=== PATIENT | female | born 1955 | race Caucasian/White ===

== ENCOUNTER → 2019-06-16 13:09 | Outpatient (CLI) | payer OTHER, SELFPAY ==
[2019-06-16 12:44] VITALS: BMI 25.1
--- NOTE | 2019-06-16 13:15 | CT_ITS ---
STUDY: LOW DOSE CT LUNG CANCER SCREENING REASON FOR EXAM: Female, 63 years old. The patient has a smoking history one and half pack per day for 42 years. RADIATION DOSAGE (If Supplied By Facility): CTDIvol = ( 2.01 ) mGy, DLP = ( 61.93 ) mGycm TECHNIQUE: No contrast was administered. Low dose technique was utilized (average mAS-38 and kVp 120). 1.25 mm axial source images with a slice interval of 1.25-mm were reconstructed in lung windows. 2.5 mm axial source images with a slice interval of 2.5-mm were reconstructed in lung windows. 5.0 mm axial source images with a slice interval of 5.0-mm were reconstructed in soft tissue windows. Nodule measured using lung windows on PACS and/or independent workstation with automated measurement of minimum and maximum diameter. Nodule measurement reported as average diameter rounded to the nearest whole number. Growth is defined as an increase ins size of greater than 1.5 mm. COMPARISON: None. NODULES: No nodular densities are seen. Emphysema: Mild degree of scarring at the lung bases. Aorta: Atherosclerotic plaque formation. Coronary arteries: Coronary artery calcification. Other chest and abdominal findings: Small hiatal hernia. CT/Low Dose CT Lung Screening IMPRESSION: Lung-RADS category 2 - Continue annual screening with LDCT in 12 months. IMPORTANT NOTES FOR USE: ACR Lung-RADS Version 1.0 Assessment Categories Release Date: October 27, 2013 Category: Coded 0-4 bases on nodule(s) with highest degree of suspicion. Negative screen is defined as categories 1 and 2; a positive screen is defined as categories 3 and 4. Category 3 and 4A nodules that are unchanged on interval CT should be coded as category 2, and individuals returned to screening in 12 months. Category 4X: Category 3 or 4 nodules with additional imaging findings that increase the suspicion of lung cancer, such as spiculation, GGN that doubles in size in 1 year, enlarged lymph notes, etc. Category Modifiers: S (significant finding unrelated to lung cancer) and C (prior history of treated lung cancer) may be added to the 0-4 Lung-RADS Electronically Signed: Jose Amador, at 14:00 EST , Service support ,
== END ==
PROVIDERS: Family Provider Physician Assistant; PCP Physician Assistant; Referring Provider Nurse Practitioner Family; Visit Provider Nurse Practitioner Family
DX: Z12.2 Encounter for screening for malignant neoplasm of respiratory organs (principal); F17.200 Nicotine dependence, unspecified, uncomplicated
CPT/HCPCS: G0297

== ENCOUNTER 2019-07-19 14:16 | Observation (INO) | payer OTHER, SELFPAY ==
[2019-06-16 12:44] VITALS: BMI 25.1
[2019-07-19 14:18] VITALS: BP 130/70; PULSE 58; RESP 16; TEMP 36.4; O2SAT 100; BMI 24.7
--- NOTE | 2019-07-19 14:30 | CT_ITS ---
STUDY: CT ABDOMEN AND PELVIS WITH CONTRAST REASON FOR EXAM: Female, 63 years old. RUQ pain today, nausea. Prior , appendectomy. RADIATION DOSAGE (If Supplied By Facility): CTDIvol = ( 16.01 ) mGy, DLP = ( 555.68 ) mGycm TECHNIQUE: Transaxial images were obtained from the dome of the diaphragm to the symphysis pubis without oral contrast. Oral and amp; IV Gastrografin and amp; 100mL Isovue-300 was administered. Sagittal and coronal images were reconstructed. Individualized dose optimization techniques were used for this CT. COMPARISON: None. FINDINGS: There are mild peripheral atelectatic changes of the right lower lobe. The visualized portions of the heart are within normal limits. There is intrahepatic periportal edema. There is well filled gallbladder. There appears to be diffuse gallbladder wall thickening. No calcified gallstones are seen. There is dilatation of the CBD measuring up to 13 mm. Normal spleen. Normal pancreas. Normal bilateral adrenal glands. There is a 7 mm probable cyst of the right kidney. There is a 4.1 cm left renal cyst. There is a small hiatal hernia. Normal small intestine. Normal colon. There is non-visualization of the appendix. There are calcified plaques of the abdominal aorta and common iliac arteries. Normal inferior vena cava. Normal retroperitoneum. Normal urinary bladder. There are bilateral fat-containing inguinal hernias. There are diffuse degenerative changes of the visualized lumbar spine. CT/Abdomen/Pelvis WITH Contrast IMPRESSION: 1. Intrahepatic periportal edema. 2. Appears to be diffuse gallbladder wall thickening. No calcified gallstones are seen. There is dilatation of the CBD measuring up to 13 mm. Right upper quadrant ultrasound may be helpful for further evaluation at this time. 3. 7 mm probable cyst of the right kidney. 4.1 cm left renal cyst. 4. Small hiatal hernia. 5. Bilateral fat-containing inguinal hernias. Electronically Signed: Raoul Merchant MD at 17:10 EST , Service support ,
--- NOTE | 2019-07-19 14:32 | ED.DCSUM_ITS ---
- ER Visit Summary Date of Service: 07/19/19 Chief Complaint: Abdominal pain History of Present Illness: The patient is a 63 F who presents with abdominal pain that began today approximately 2 hours prior to arrival. Patient states this feels similar to her prior bowel obstruction. Patient describes the pain is sharp. Patient states the pain is mainly localized to the right upper quadrant. Patient does admit to some radiation into her back. Patient states her pain is laying still. Patient states nothing makes her pain worse. Patient admits to nausea but denies any vomiting. Patient denies any diarrhea, melena, or hematochezia. Patient denies any dysuria or hematuria. Physical Examination: Vital signs are stable. Patient is afebrile. Patient is in no acute distress. Oral mucosa is pink and moist. Neck is supple. Trachea is midline. There is no JVD. Heart was regular rate and rhythm. Lungs are clear and equal bilaterally. Abdomen is soft. Bowel sounds are normal. There is some right upper quadrant and epigastric tenderness. There is no rebound or guarding noted. Cranial nerves II through XII are intact. There are no focal motor or sensory deficits noted. Test Results: CBC shows a leukocytosis of 16.4. Comprehensive metabolic profile showed a slightly elevated AST of 54 and a slightly elevated glucose of 156 but the remaining labs are within normal limits. Urinalysis does not show any evidence of urinary tract infection. CT scan of the abdomen and pelvis was obtained. There is evidence of cholecystitis. A ultrasound was recommended. This was performed. There is gallbladder wall thickening and ductal dilatation of the biliary duct. There is some pericholecystic fluid. This was interpreted by the radiologist. Emergency Department Course and Treatment: Patient was given IV fluids, Zofran, and morphine. Patient is feeling somewhat better on reevaluation. The case was discussed with Dr. Ward. He was in to evaluate the patient and will admit the patient to his service. Patient and family understood and were agreeable with the plan. All questions were answered. Disposition: Admit to hospital Impression: Acute cholecystitis This note was generated with SpareTimeation software. It may contain incorrect words, spelling, and punctuation that were not noted in review of the chart prior to signing ED Disposition - Plan for ED Patient: Disposition: Acute Care Hospital [facility] Diagnosis: Acute cholecystitis
[2019-07-19] MEDS: Ondansetron 4 MG/2 ML Vial IV (14:46)
[2019-07-19] MEDS: 0.9% Normal Saline 1,000 ML 1000 ML IV (14:46)
[2019-07-19] MEDS: Morphine 4 MG/ML Syringe IV (14:47)
[2019-07-19 15:06] LABS: Absolute Neutrophil Count 13.9 X10^3/uL (2.0-7.7); Basophil# 0.04 X10^3/uL; Basophil% 0.2 % (0-1); Eosinophil# 0.05 X10^3/uL; Eosinophils% 0.3 % (0-5); Hematocrit 40.3 % (37-47); Hemoglobin 13.2 g/dL (12.0-15.0); Lymphocyte % 9.1 % (19-41); Mean Corp Hgb Conc 32.8 g/dL (32-36); Mean Corpuscular Hgb 29.7 pg (27.0-32.0); Mean Corpuscular Volume 90.8 fL (81-99); Mean Platelet Vol. 9.4 fl (6.2-12.0); Monocyte# 0.86 X10^3/uL; Monocyte% 5.2 % (0-10); NRBC Flagged by Analyzer 0 % (0-5); Neutrophil # 13.87 X10^3/uL (2.7-7.7); Neutrophil % 84.5 % (47-70); Platelet Count 277 K/mm3 (150-450); RBC Distribution Width CV 13.2 % (11.6-14.6); RBC Distribution Width SD 44.5 fl (35.1-43.9); Red Blood Count 4.44 M/mm3 (4.2-5.4); White Blood Count 16.4 K/mm3 (4.4-11.0)
[2019-07-19 15:34] LABS: ALB/GLOB Ratio 1.2 RATIO (0.9-2.4); AST(SGOT) 54 U/L (15-37); Alanine Aminotransfer ALT/SGPT 46 U/L (13-56); Albumin, Serum 3.9 g/dL (3.2-5.0); Alkaline Phosphatase 110 U/L (45-117); Anion Gap 6 (5-15); BUN 14 mg/dL (7-18); BUN/Creat Ratio 14.1 RATIO (10-20); Chloride 108 mmol/L (98-107); Creatinine, Serum 0.99 mg/dL (0.55-1.02); EST Glomerular Filtration Rate 60 mL/min (>60); Est Glom Filt Rate - Afr Amer 73 mL/min (>60); Estimated Creatinine Clearance 48.11 ml/min; Globulin 3.3 g/dL (2.2-4.2); Glucose 156 mg/dL (74-106); Lipase 184 U/L (73-393); Potassium 3.7 mmol/L (3.5-5.1); Protein, Total 7.2 g/dL (6.4-8.2); Sodium Level 139 mmol/L (136-145)
[2019-07-19 15:45] LABS: Bacteria 0 SEEN /hpf (None Seen); Mucous, Urine 0 SEEN /hpf (<or=2+)
[2019-07-19 15:49] LABS: Color, Urine Yellow (Yellow); Glucose, Dipstick Normal (Normal); Ketone-Dipstick 5 mg/dl (Negative); Leukocyte Esterase-Dipstick Negative /ul (Negative); Nitrite-Dipstick Negative (Negative); Occult Blood-Urine 10 /ul (Negative); Protein-Dipstick Negative (Negative); Urine Bilirubin Dipstick Negative (Negative); Urine Clarity Sl. Cloudy (Clear); Urine Urobilinogen Normal (Normal)
[2019-07-19 15:56] LABS: Red Blood Cells-Urine 0-5 SEEN /hpf (0-5); Squamous Epithelial Cells - UA 0-5 SEEN /hpf (5-10); White Blood Cells 0 SEEN /hpf (0-5)
--- NOTE | 2019-07-19 17:26 | US_ITS ---
STUDY: ABDOMINAL ULTRASOUND - RIGHT UPPER QUADRANT REASON FOR VISIT: Female, 63 years old RUQ PAIN SINCE NOON TODAY NPP SINCE 930AM DRANK CONTRAST FOR CT TECHNIQUE: Ultrasound evaluation of the right upper quadrant was performed with real-time and static chow-scale imaging. TECHNICAL QUALITY: Limited. Examination limited by bowel gas. COMPARISON: None. FINDINGS: Liver: The liver measures 18.2 cm. There is normal echogenicity of the liver. The bile ducts are within normal limits. There is hepatic color flow. The direction of portal flow is hepatopetal. There is no demonstrated mass lesion. Gallbladder: Normal distended gallbladder. The gallbladder wall measures 5 mm. There is a negative sonographic Luna''s sign. There is a tiny amount of pericholecystic fluid. There are several small polyps versus nonshadowing gallstones in the 3 to 4 mm range. Common Bile Duct (C.B.D.): The common bile duct measures 9.8 mm. Pancreas: Normal size of the head, body and tail of the pancreas. There is normal echogenicity of the pancreas. There is no demonstrated pancreatic mass or cyst. Right Kidney: Normal size of the right kidney. The right kidney measures 10.5 x 6.0 x 3.8 cm. Normal renal cortex. The right cortex measures 1.1 cm. There is a 1.0 x 0.9 x 0.8 cm midpole cyst. There is no right hydronephrosis. US/Gallbladder IMPRESSION: Gallbladder wall thickening, measuring up to 5 mm. There is a tiny amount of pericholecystic fluid. Findings are compatible with cholecystitis. There are several small polyps versus nonshadowing gallstones in the 3 to 4 mm range. Dilated CBD measuring up to 9.8 mm. Small mid pole cyst of the right kidney. Electronically Signed: Raoul Merchant MD at 19:25 EST , Service support ,
--- NOTE | 2019-07-19 20:03 | HP.PCM_ITS ---
Problem List (1) Acute cholecystitis Status: Acute History of Present Illness Date of Admission: 07/19/19 The patient is a 63 year old F who reports she had upper right quadrant abdominal pain yesterday and then it went away and then came back again today. She has nausea but no vomiting. It radiates the back. No fevers or chills. She has never had this before. She does note that she has been having increased heartburn recently. Past Medical History Medical History: Medical History (Last Reviewed 06/16/19 @ 12:41 by Akanksha Lundberg) Apnea R06.81 Bowel obstruction K56.609 repair 2003 at [facility] Elevated fasting blood sugar R73.01 GERD (gastroesophageal reflux disease) K21.9 Heart palpitations R00.2 Hyperglycemia R73.9 Hyperlipidemia E78.5 Hypothyroidism E03.9 Intestinal adhesions K66.0 removal of adhesions 2003 at [facility] Memory difficulty R41.3 Osteopenia M85.80 Osteoporosis M81.0 Positive colorectal cancer screening using Cologuard test R19.5 Post-menopausal Z78.0 Tobacco use disorder F17.200 Vitamin D deficiency E55.9 HTN (hypertension) I10 Allergies simvastatin Allergy (Verified 06/16/19 12:43) Other blisters Home Medications: Ambulatory Orders Medication Instructions Recorded Alendronate Sodium [Fosamax] 70 mg PO Q7D@0700 06/16/19 Aspirin E.C. [Ecotrin] 81 mg PO DAILY@0800 06/16/19 Atorvastatin Calcium [Lipitor] 40 mg PO QHS 06/16/19 Levothyroxine [Synthroid] 75 mcg PO DAILY 06/16/19 Multivitamins,Therapeutic 1 tab PO DAILY 06/16/19 [Multivitamin] [place]-3 Fatty Acids/Fish Oil [Fish 1 ea PO TID 06/16/19 Oil 1,000 mg Capsule] Surgical History: Surgical History (Last Updated 06/16/19 @ 08:51 by Akanksha Lundberg) History of delivery Z98.891 History of tubal ligation Z98.51 Surgical History: - - C-sections, exploratory laparotomy for small bowel adhesions Smoking Status: Current every day smoker Review of Systems Constitutional: Denies: Anorexia, Fever HEENT: Denies: Difficulty Swallowing, Dysphasia Cardiovascular: Denies: Chest Pain Respiratory: Denies: Cough, Shortness of Breath Gastrointestinal: Reports: Abdominal Pain, Nausea. Denies: Constipation, Diarrhea, Vomiting Genitourinary: Denies: Dysuria Musculoskeletal: Denies: Arm Pain, Leg Pain Skin: Denies: Dryness, Jaundice Neurological: Denies: Balance problems Psychiatric: Denies: Anxiety Hematologic/ Lymphatic: Denies: Adenopathy VTE Information - Inpt Only VTE Present on Admission: No VTE Mechan Device Prophylaxis: SCD's Patient Problems: Active and Suspected Problems (Last Reviewed 06/16/19 @ 12:41 by Akanksha Lundberg) Acute cholecystitis (Acute) - Physical Exam Vitals/I&O's: Vital Signs Temp Pulse Resp BP Pulse Ox 97.5 F L 58 L 16 130/70 H 100 07/19/19 14:18 07/19/19 14:18 07/19/19 14:18 07/19/19 14:18 07/19/19 14:18 Oxygen Delivery Method Room Air Weight: 140 lb Body Mass Index (BMI) 24.7 Intake and Output for Last 24 Hours 07/17/19 07/18/19 07/19/19 23:59 23:59 23:59 Intake Total 1000 / 1000 Balance 1000 / 1000 General: Alert, Oriented x3 Neck: No JVD Lungs: Normal air movement Cardiovascular: Regular rate, Regular Rhythm Abdomen: Soft, Non-Distended, Tender - Tender to deep palpation in the right upper quadrant with no guarding or rebound Neurological: Cranial nerves II-XII grossly intact Psych/Mental Status: Normal Affect Laboratory Results 07/19/19 14:57: WBC 16.4 H, RBC 4.44, Hgb 13.2, Hct 40.3, MCV 90.8, MCH 29.7, MCHC 32.8, RDW Std Deviation 44.5 H, RDW Coeff of Oswald 13.2, Plt Count 277, MPV 9.4, Immature Gran % (Auto) 0.700, Neut % (Auto) 84.5 H, Lymph % (Auto) 9.1 L, [place] % (Auto) 5.2, Eos % (Auto) 0.3, Baso % (Auto) 0.2, Absolute Neuts (auto) 13.9 H, Absolute Lymphs (auto) 1.50, Nucleated RBC % 0 07/19/19 14:57: Sodium 139, Potassium 3.7, Chloride 108 H, Carbon Dioxide 25.0, Anion Gap 6, BUN 14, Creatinine 0.99, Estim Creat Clear Calc 48.11, Est GFR (MDRD) Af Amer 73, Est GFR (MDRD) Non-Af 60, BUN/Creatinine Ratio 14.1, Glucose 156 H, Calcium 9.0, Total Bilirubin 0.80, AST 54 H, ALT 46, Alkaline Phosphatase 110, Total Protein 7.2, Albumin 3.9, Globulin 3.3, Albumin/Globulin Ratio 1.2, Lipase 184 07/19/19 15:35: Urine Color Yellow, Urine Clarity Sl. Cloudy, Urine pH 7.0, Ur Specific [place] 1.010, Urine Protein Negative, Urine Glucose (UA) Normal, Urine Ketones 5 H, Urine Occult Blood 10 H, Urine Nitrite Negative, Urine Bilirubin Negative, Urine Urobilinogen Normal, Ur Leukocyte Esterase Negative, Urine RBC 0-5 SEEN, Urine WBC 0 SEEN, Ur Squamous Epith Cells 0-5 SEEN, Urine Bacteria 0 SEEN, Urine Mucus 0 SEEN Clinical Impression(s) from Imaging Studies Abdomen/Pelvis CT 07/19/19 14:30 IMPRESSION: 1. Intrahepatic periportal edema. 2. Appears to be diffuse gallbladder wall thickening. No calcified gallstones are seen. There is dilatation of the CBD measuring up to 13 mm. Right upper quadrant ultrasound may be helpful for further evaluation at this time. 3. 7 mm probable cyst of the right kidney. 4.1 cm left renal cyst. 4. Small hiatal hernia. 5. Bilateral fat-containing inguinal hernias. Electronically Signed: Raoul Merchant MD at 17:10 EST , Service support , Gallbladder Ultrasound 07/19/19 17:26 IMPRESSION: Gallbladder wall thickening, measuring up to 5 mm. There is a tiny amount of pericholecystic fluid. Findings are compatible with cholecystitis. There are several small polyps versus nonshadowing gallstones in the 3 to 4 mm range. Dilated CBD measuring up to 9.8 mm. Small mid pole cyst of the right kidney. Electronically Signed: Raoul Merchant MD at 19:25 EST , Service support , Assessment/Plan All Active Problems (Last Reviewed 06/16/19 @ 12:41 by Akanksha Lundberg) Acute cholecystitis (Acute) Tobacco use disorder, continuous (Acute) 63-year-old female with acute cholecystitis 1. The patient had right upper quadrant pain which is now improved. She does have an elevated white count with a left shift. She had a CT scan which showed thickening of the gallbladder wall with pericholecystic edema as well as dilation of her common bile duct. Her LFTs are currently normal. She does have thickening of her gallbladder wall on ultrasound as well. I discussed laparoscopic cholecystectomy with cholangiogram with her. I also discussed the possibility of needing an ERCP if there are any stones identified in the duct. The patient understands and is willing to proceed. 2. I discussed the procedure in detail with the patient. I discussed the risks, benefits, and alternatives of the procedure. I discussed the risks including but not limited to bleeding, infection, injury to surrounding organs such as the liver, bile duct, bowels. I did discuss the possibility of having to convert to an open procedure as well as the possibility that if any injuries occurred this may necessitate further surgery at a tertiary care center. 3. I will admit her to the floor and keep her on Zosyn and keep her n.p.o. after midnight and plan for OR in the morning. Jonathan Ward MD Pager: [facility] [address] [place] [address], [address] [place] [address] Office:
--- NOTE | 2019-07-19 20:07 | EKG12_ITS ---
Test Reason : AM Blood Pressure : / mmHG Vent. Rate : 058 BPM Atrial Rate : 058 BPM P-R Int : 160 ms QRS Dur : 070 ms QT Int : 438 ms P-R-T Axes : 043 016 057 degrees QTc Int : 429 ms Sinus bradycardia with sinus arrhythmia Low voltage QRS Borderline ECG Confirmed by SERGIO MCINTYRE, YARA ([id number]), manager editorial JOHN HECTOR ([id number]) on 07/23/2019 10:24:41 AM Referred By: Lissette Kelly Confirmed By:YARA HILL MD
[2019-07-19 20:17] VITALS: BP 133/74; PULSE 60; PULSE 63; RESP 14; O2SAT 95
[2019-07-19 21:09] VITALS: BMI 26.1
[2019-07-19 21:13] VITALS: BP 132/72; PULSE 61; RESP 16; TEMP 36.7; O2SAT 97
[2019-07-19 21:25] VITALS: BMI 26.1
[2019-07-19] MEDS: 0.9% Normal Saline 1,000 ML 100 ML IV (21:41)
[2019-07-19] MEDS: 0.9% Saline Lock 10 ML Syringe IV (21:41)
[2019-07-19] MEDS: Famotidine 20 MG Tablet PO (22:13)
[2019-07-19 22:55] VITALS: BMI 26.1
[2019-07-20] VITALS (14 sets, daily range): BP systolic 109–154; BP diastolic 59–86; PULSE 51–99; RESP 16–18; TEMP 36.3–36.8; O2SAT 92–98; BMI 26.1
--- NOTE | 2019-07-20 | GALL_PTH ---
PATIENT: AUDI SANTIZO LOC: MS3 U#:[id number] AGE/SX: 63/F ROOM: MS305 RE07/19/[address]: Dr. Jonathan Ward MD : [id number] BED: 1 DIS: 07/20/2019 SPEC #: [id number] RECD: 07/21/19 09:20 STATUS: NEREYDA REYinka #: [id number] MARISELA: 07/20/19 00:[address]: Jonathan Ward DEPT: SURGICAL PATHOLOGY RECD BY: Kobe Winslow ENTERED: 07/21/19 13:21 SP TYPE: JUNO RAZA DR: HECTOR Esquivel Tissues: Gallbladder, NOS Procedures: Surgery Specimen Level III HEADER OPERATION: Laparoscopic cholecystectomy with IOC PRE-OP DIAGNOSIS: Acute cholecystitis TISSUE SUBMITTED: Gallbladder MICROSCOPIC DIAGNOSIS Gallbladder, cholecystectomy: Chronic cholecystitis. Benign pericystic lymph node. AM:taylor 1/21/20 MICROSCOPIC DESCRIPTION Slides are reviewed. GROSS DESCRIPTION Received is one container labeled with the patient's name and designated gallbladder. The specimen consists of a gallbladder measuring 10 cm in length and 3.5 cm in diameter. The external surface is pink-neff, smooth and glistening for the most part. Focally it is granular, hemorrhagic and contains cautery artifact. The gallbladder contains green-yellow mucoid bile. No stones are identified in the container or in the gallbladder. The mucosa is bile-stained and without any mass lesions. The gallbladder wall measures 0.2 cm in thickness. Also present close to the cystic duct is a neff, ovoid nodule, a possible lymph node, measuring 0.5 cm in greatest dimension. Automobile Seat Cover Installer sections from the gallbladder and the cystic duct including entire possible lymph node are submitted in one cassette. / SJ:taylor 07/21/19 TC:3 CPT: 34105
[2019-07-20] MEDS: Levothyroxine 75 MCG Tablet PO (05:21)
[2019-07-20 07:01] LABS: Absolute Lymphocyte Count 1.85 X10^3/uL (0.83-4.51); Basophil# 0.05 X10^3/uL; Basophil% 0.7 % (0-1); Eosinophil# 0.11 X10^3/uL; Eosinophils% 1.5 % (0-5); Hematocrit 37.8 % (37-47); Lymphocyte # 1.85 X10^3/ul (4.0); Lymphocyte % 24.6 % (19-41); Mean Corp Hgb Conc 31.7 g/dL (32-36); Mean Corpuscular Hgb 29.1 pg (27.0-32.0); Mean Corpuscular Volume 91.7 fL (81-99); Mean Platelet Vol. 9.9 fl (6.2-12.0); Monocyte% 6.6 % (0-10); NRBC Flagged by Analyzer 0 % (0-5); Neutrophil % 66.3 % (47-70); Platelet Count 228 K/mm3 (150-450); RBC Distribution Width CV 13.4 % (11.6-14.6); RBC Distribution Width SD 45.4 fl (35.1-43.9); Red Blood Count 4.12 M/mm3 (4.2-5.4); White Blood Count 7.5 K/mm3 (4.4-11.0)
[2019-07-20 07:25] LABS: ALB/GLOB Ratio 1.1 RATIO (0.9-2.4); AST(SGOT) 34 U/L (15-37); Alanine Aminotransfer ALT/SGPT 56 U/L (13-56); Albumin, Serum 3.1 g/dL (3.2-5.0); Alkaline Phosphatase 97 U/L (45-117); Anion Gap 5 (5-15); BUN 8 mg/dL (7-18); BUN/Creat Ratio 9.9 RATIO (10-20); Chloride 113 mmol/L (98-107); Creatinine, Serum 0.81 mg/dL (0.55-1.02); EST Glomerular Filtration Rate 76 mL/min (>60); Est Glom Filt Rate - Afr Amer 92 mL/min (>60); Estimated Creatinine Clearance 56.23 ml/min; Globulin 2.8 g/dL (2.2-4.2); Glucose 83 mg/dL (74-106); Lipase 83 U/L (73-393); Potassium 3.9 mmol/L (3.5-5.1); Protein, Total 5.9 g/dL (6.4-8.2); Sodium Level 142 mmol/L (136-145); Thyroid Stim Hormone (TSH) 1.19 uIU/mL (0.358-3.74)
[2019-07-20] MEDS: 0.9% Normal Saline 1,000 ML 100 ML IV ×2 (07:30→10:35)
--- NOTE | 2019-07-20 07:53 | NURSING ---
pt transported to OR via bed at this time, IV Zosyn sent running on pump.
--- NOTE | 2019-07-20 08:10 | RAD_ITS ---
PROCEDURE: INTRAOPERATIVE CHOLANGIOGRAM DATE OF EXAMINATION: 07/20/2019 INDICATION: Female, 63 years old. Following a laparoscopic cholecystectomy an intraoperative cholangiogram was performed by the surgeon. FLUOROSCOPY TIME (if supplied): (0:32) minutes/seconds TECHNIQUE: Under fluoroscopic guidance an intraoperative cholangiogram was performed with serial digital images obtained. FINDINGS: There is normal opacification of the common bile duct, hepatic duct, right and left hepatic ducts. The ducts are normal in size. There is no mucosal irregularity or intraluminal filling defects. The contrast flows into the second portion of the duodenum on later images. RAD/Cholangiogram/ O R,Initial IMPRESSION: Normal intraoperative cholangiogram. Electronically Signed: Omkar Martinez MD (Bro[place]) at 12:15 EST , Service support ,
[2019-07-20] MEDS: Bupivacaine Mpf 0.5% 30 ML VIAL (08:40)
--- NOTE | 2019-07-20 09:07 | PCM.OPRPT ---
Problem List (1) Acute cholecystitis Status: Acute Report of Operation Date of Procedure: 07/20/19 Pre-Operative Diagnosis: Acute cholecystitis Post-Operative Diagnosis: Acute cholecystitis with dilated common bile duct Surgery/Procedure Performed:: Laparoscopic cholecystectomy with cholangiogram Specimen's removed: Gallbladder and contents Description of Procedure: After obtaining informed consent patient was brought back to the operating room. General anesthesia was induced. The abdomen was prepped and draped in usual sterile fashion. A small midline incision was made superior to the umbilicus and deepened to the level of fascia. The fascia was elevated and incised. Next the peritoneum was elevated and incised in the same fashion. Finger sweep was performed and the Joseph trocar was placed into the abdomen. The balloon was inflated. The abdomen was inflated to 15 mmHg. Next a camera was introduced into the abdomen and the abdomen was inspected. Next under direct visualization three 5-mm ports were placed one subxiphoid and 2 subcostal. Next the gallbladder was elevated and retracted toward the right shoulder. The peritoneum was stripped from the gallbladder. The infundibulum was located and retracted laterally. Next the triangle of Calot was dissected and the cystic duct and cystic artery were identified. Cholangiograms were performed. The Mckeon clamp was used to clamp across the infundibulum and the catheter needle was inserted into the gallbladder. Under fluoroscopy contrast was instilled into the gallbladder and the common duct, cystic duct as well as proximal hepatic ducts were identified. There was filling of the duodenum. The common bile duct appeared dilated. There were no filling defects noted in the common bile duct. Glucagon was given and 3 minutes later a repeat cholangiogram was performed and there was flow into the duodenum. The clamp was removed as well as the needle and the infundibulum was grasped once more. Three hemolock clips were placed across the cystic duct. The cystic duct was then divided leaving 2 clips on the stump. The cystic artery was clipped and divided in the same fashion. The hook cautery was then used to take the gallbladder off of the gallbladder bed. Hemostasis was obtained. Gallbladder fossa was irrigated and no active bleeding or bile leakage was noted. Next the camera switched to a 5 mm camera and introduced in the subxiphoid port. An Endopouch bag was placed through the umbilical port and the gallbladder was placed into it. The gallbladder was then removed through the umbilical incision. The camera was then reinserted through the umbilical port. The gallbladder fossa was inspected once more and noted to be hemostatic with no leaking bile. The abdomen was suctioned dry. The 5 mm ports were removed under direct visualization. The umbilical port was then removed and the air was removed from the abdomen. Next using an 0 Vicryl suture the umbilical fascia was closed in a asvyvw-[id number] fashion. The umbilical port site was irrigated local anesthetic was administered to all the incisions. All the incisions were closed with interrupted subcuticular 4-0 Monocryl sutures followed by Steri-Strips and dressings. The patient was awoken and taken to PACU in stable condition. - Admit VTE Documentation VTE Mechan Device Prophylaxis: SCD's
--- NOTE | 2019-07-20 09:30 | DCINST_ITS ---
Discharge Diet: Light diet - advance as tolerated Discharge Activity: Return to Normal Activity, May Not Drive - for 2-3 days or while taking narcotic pain medicataions., May Shower - tomorrow with bandages in place, - - Do not drive, work heavy equipment or sign legal documents for 24 hours. May shower in (days): 1 - with the bandage in place. Lifting Restrictions: 20 lbs for 2 weeks Additional Activity Instructions:: Pain medication may cause nausea. You should typically eat light foods as you take your pain medications. Pain medication may also cause constipation. If this is a problem for you, please discuss with your doctor. Call your doctor if your incision/area has: Continuous Slow Oozing, Sudden Increased Bleeding, Increased Pain/ Swelling, Increased Redness, Foul Smelling Discharge, Fever of 101 or Higher Call your doctor if you observe: Fever of 101 or Higher Suture Line Care: Avoid Pulling/Pushing, Avoid Pinching/Bending Additional Dressing/Incision Instructions:: Leave operative bandaids on for 2 days. When you remove dressing, leave Steri-Strips on until your follow-up appointment, or until the Steri-Strips fall off on their own. Allergies/Adverse Reactions: Allergies simvastatin Allergy (Verified 06/16/19 12:43) Other blisters Medications to take at Discharge Alendronate Sodium [Fosamax] 70 mg PO MO 06/16/19 Aspirin E.C. [Ecotrin] 81 mg PO DAILY@0800 06/16/19 Atorvastatin Calcium [Lipitor] 40 mg PO QHS 06/16/19 Levothyroxine [Synthroid] 75 mcg PO DAILY 06/16/19 Multivitamins,Therapeutic [Multivitamin] 1 tab PO DAILY 06/16/19 [place]-3 Fatty Acids/Fish Oil [Fish Oil 1,000 mg Capsule] 1 ea PO DAILY 06/16/19 Famotidine [Pepcid] 20 mg PO DAILY PRN 07/19/19 Oxycodone [Oxyir] 5 mg PO Q4H PRN PRN 7 Days #30 tablet 07/20/19 The following prescriptions were given: Oxycodone [Oxyir] 5 mg PO Q4H PRN PRN 7 Days #30 tablet PRN Reason: Pain Score 6-10/10 Transmission Status: Sent to [id number] Primary Care Physician: Lissette Kelly PA [Primary Care Provider] - Test Results: Test results from this visit will be discussed in further detail at your follow- up appointment, if applicable. Please Follow Up With: Jonathan Ward MD When: Please call to schedule 2 week follow up appointment. [phone]
[2019-07-20] MEDS: Morphine 2 MG/ML Syringe IV (10:34)
[2019-07-20] MEDS: oxyCODONE 5 MG Tablet PO ×2 (13:12→18:16)
[2019-07-20] MEDS: Acetaminophen 325 MG Tablet 650 MG PO (14:50)
== END 2019-07-20 18:54 | disposition home or self-care (01) ==
LOC: ED 14:44 → MS3 20:11
PROVIDERS: Admitting Provider Surgery; Emergency Provider Emergency Medicine; PCP Physician Assistant; Visit Provider Surgery
PROC: (CPT 47610; principal; 2019-07-20 08:00)
DX: K81.2 Acute cholecystitis with chronic cholecystitis (principal); K83.8 Other specified diseases of biliary tract; E03.9 Hypothyroidism, unspecified; K21.9 Gastro-esophageal reflux disease without esophagitis; R73.9 Hyperglycemia, unspecified; E78.5 Hyperlipidemia, unspecified; I10 Essential (primary) hypertension; E55.9 Vitamin D deficiency, unspecified; Z79.899 Other long term (current) drug therapy; Z79.82 Long term (current) use of aspirin; M81.0 Age-related osteoporosis without current pathological fracture; F17.200 Nicotine dependence, unspecified, uncomplicated
CPT/HCPCS: 00790; 47563; 36415; 74177; 74300; 76000; 76705; 80053; 81001; 83690; 84443; 85025; 88304; 93005; 96361; 96365; 96366; 96375; 96376; 99218; 99251; 99284; 99406; J7030; J7050; Q9967; A4216; G0378; G0463; J1610; J2405

== ENCOUNTER 2019-08-22 06:54 | Day surgery (SDC) | payer OTHER, SELFPAY ==
[2019-07-20 06:52] VITALS: BMI 26.1
[2019-08-22 07:22] VITALS: BP 123/73; PULSE 72; RESP 15; TEMP 36.8; O2SAT 99; BMI 25.1
[2019-08-22] MEDS: Lactated Ringers 1,000 ML 100 ML IV (07:32)
--- NOTE | 2019-08-22 07:32 | HP.PCM_ITS ---
History of Present Illness Date of Admission: 08/22/19 The patient is a 63 year old F who presents for EGD today. The patient had acute cholecystitis and the etiology was unknown. There were very small stones in her gallbladder and there was also ductal dilation. Past Medical/Surgical History - Planned Operation Planned Operative Procedure/s: EGD Date of Operative Procedure: 08/22/19 Permit Signed: No S.O.S: No Is This Patient Having a Total Joint: No - Previous Hospitalizations/Surgeries HX Hospitalizations: Yes - 07/2019 HX of Surgeries: 1986. Adhesion removal 2003. Tubal 1988. lap darshan 07/2019 Any Problems With Anesthesia: Yes - nausea with gallbladder You/Your Family Experience Fever (Hyperthermia) With Anes: No Cholinesterase deficiency: No - Cardiovascular Hx Chest Pain within Last 2 months: No Hx of Irregular Heartbeat and/or Afib: No Hx Heart Attack: No Hx Congestive Heart Failure: No Hx Rheumatic Fever: No - scarlet fever at age 5 Hx Hypertension: Yes - not on meds Hx Internal Defibrillator: No Hx Pacemaker: No Hx Cardiac Catheterization: No Hx Cardiac Surgery/Stents/Etc.: No Hx Stress Test: Yes - About 10 years ago HX Edema: No Hx Pain in Legs when Walking/Leg Cramps: No - Respiratory Chronic Cough: No HX of Shortness of Breath: Yes - states slightly sob with 2 flights stairs Hoarseness: No Hx Chronic Obstructive Pulmonary Disease (COPD): No Hx Asthma: No Hx Emphysema: No - denies Hx Sleep Apnea: No CPAP: No BIPAP: No Hx Oxygen Use at Home: No Hx Respiratory Tract Infection/Cold (presently): No Do You Snore Loudly (louder than talking or can be heard): Yes Do You Often Feel Tired/ Fatigued/ Sleepy Dring Daytime?: No Has Anyone Observed You Stop Breathing During Sleep?: No Result (for STOP score): Positive Hx Smoking: Yes - !ppd X 40 yrs Smoking Status: Current every day smoker - Gastrointestinal Hx Gastroesophageal Reflux: Yes Controlled With Meds: Yes - pepcid Hx Gastrointestinal Disorders: Yes - Diverticulitis Hx Gastrointestinal Bleed: No Hx Ulcer: Yes - 30 years ago Hx Hiatal Hernia: Yes Difficulty Chewing/Swallowing: No Recent Onset of Swallowing Problems: No Special diet followed at home: No Hx Unplanned Weight Loss of 20#: No HX Unplanned Weight Gain of 20#: No - Neurological Hx Seizures: No HX Syncope/Blackout Spells/Unconsciousness: No Hx CVA/Stroke: No Hx Transient Ischemic Attacks (TIA): No Hx Multiple Sclerosis: No Hx Parkinson's Disease: No Hx Head/Neck Injury: No Hx Headaches: No Hx Back Injury/Pain: No Recent Onset of Speech Difficulty: No Restless Legs: No Does patient have nerve stimulator: No Patient instructed to have device shut off: No Rep notified?: No - Blood Disorder Hx Leukemia: No Bleeding Tendencies: No Hx Deep Vein Thrombosis: No Hx High Cholesterol: Yes - on med Blood Transmitted Disease: No Hx Hepatitis: No Hx Cirrhosis: No Hx Anemia: No Hx Blood Disorders: No - Reproduction : No Is Patient Lactating: No Hx Hysterectomy: No Hx Tubal Ligation: Yes Are You Post Menopause: Yes - Genitourinary Hx Renal Disease: No Hx Dialysis: No - Musculoskeletal Hx Arthritis: No Hx Rheumatoid Arthritis: No Hx Gout: No Recent Onset of an Orthopedic Problem: No - Endocrine Hx Diabetes: No Insulin: No Thyroid Disease: Yes - hypothyroid, on med Hx Steroid Therapy: No - Psycho/Social Hx Substance Use: No Hx Alcohol Use: No Hx Anxiety: No Hx Depression: No Mental Illness: No Hx Dementia: No - Miscellaneous Hx Cancer: No Recent Exposure to Contagious Disease: No Active MRSA: No Hx of C-Diff: No Any Loose Teeth: No - dentures Allergies chlorhexidine Allergy (Mild, Verified 08/22/19 07:21) rash simvastatin Allergy (Verified 08/22/19 07:21) Other blisters - Discharge Is Pt Admitted From a Longterm, or a [facility]: No Who Could Help: After D/C, Where Do you Plan to Go: Return Home - From the PAT History Number of Risk Factors: 2 - Physical Exam Vitals/I&O's: Vital Signs Temp Pulse Resp BP Pulse Ox 98.3 F 72 15 123/73 H 99 08/22/19 07:22 08/22/19 07:22 08/22/19 07:22 08/22/19 07:22 08/22/19 07:22 Oxygen Delivery Method Room Air Weight: 141 lb 12.116 oz Body Mass Index (BMI) 25.1 General: Alert, Oriented x3 Neck: No JVD Lungs: Normal air movement Cardiovascular: Regular rate, Regular Rhythm Abdomen: Soft, Non Tender, Non-Distended Current Medications Lactated Ringer's () 1,000 mls @ 100 mls/hr IV .Q10H [facility] Assessment/Plan All Active Problems (Last Reviewed 06/16/19 @ 12:41 by Akanksha Lundberg) Acute cholecystitis (Acute) Tobacco use disorder, continuous (Acute) 63-year-old female with ductal dilation 1. The patient had biliary dilation. CT scan was normal revealing no pancreatic mass. She also had acute cholecystitis. I would like to perform an EGD to ensure that there is no ampullary mass. 2. I explained endoscopy in detail to the patient. I explained the risks including but not limited to stroke or heart attack with anesthesia, perforation of the GI tract, bleeding, infection. I explained that any of these could necessitate further emergency surgery. The patient understands and all q uestions were answered sufficiently. The patient wishes to proceed with procedure. Jonathan Ward MD Pager: [facility] [address] [place] [address] [address] [place] [address] Office: Surgery Risks - Colonoscopy Risks Include but are not Limited To: Risks include but are not limited to: Bleeding, perforation requiring further surgery, inability to complete colonoscopy requiring barium enema.
--- NOTE | 2019-08-22 07:53 | OP.CCLET_ITS ---
08/22/2019 Lissette Kelly Re : Upper GI endoscopy procedure for Ivett Kelly This procedure was performed on Thursday, August 22, 2019. My impressions and recommendations are as follows: Impressions : - Medium-sized hiatal hernia. - Normal stomach. - Normal examined duodenum. - No specimens collected. Recommendations : - Discharge patient to home. - Resume previous diet. - Continue present medications. My findings are described in the full procedure note, which is enclosed. If I can be of further assistance, please feel free to contact me at Doctor phone number(s): , Work: . Sincerely, Jonathan Ward MD 08/22/2019 7:53:03 AM This report has been signed electronically.
--- NOTE | 2019-08-22 07:53 | OP.EGD_ITS ---
Patient Name: Ivett Ortega Procedure Date: 08/22/2019 7:37 AM Date of : 1955 Age: 63 Procedure: Upper GI endoscopy Indications: Abnormal CT of the GI tract Providers: Jonathan Ward MD Referring MD: Lissette Kelly Medicines: Monitored Anesthesia Care Patient Profile: This is a 63 year old female. Refer to note in patient chart for documentation of history and physical. Complications: No immediate complications. Estimated blood loss: Minimal. Procedure: Pre-Anesthesia Assessment: - Prior to the procedure, a History and Physical was performed, and patient medications and allergies were reviewed. The patient's tolerance of previous anesthesia was also reviewed. The risks and benefits of the procedure and the sedation options and risks were discussed with the patient. All questions were answered, and informed consent was obtained. Prior Anticoagulants: The patient has taken no previous anticoagulant or antiplatelet agents. After reviewing the risks and benefits, the patient was deemed in satisfactory condition to undergo the procedure. After obtaining informed consent, the endoscope was passed under direct vision. Throughout the procedure, the patient's blood pressure, pulse, and oxygen saturations were monitored continuously. The gastroscope was introduced through the mouth, and advanced to the fourth part of duodenum. The upper GI endoscopy was accomplished without difficulty. The patient tolerated the procedure well. Scope In: 7:46:58 AM Scope Out: 7:50:15 AM Total Procedure Duration Time 0 hours 3 minutes 17 seconds Findings: A medium-sized hiatal hernia was present. The stomach was normal. The examined duodenum was normal. Impression: - Medium-sized hiatal hernia. - Normal stomach. - Normal examined duodenum. - No specimens collected. Recommendation: - Discharge patient to home. - Resume previous diet. - Continue present medications. Procedure Code(s): --- Professional --- 95478, Esophagogastroduodenoscopy, flexible, transoral; diagnostic, including collection of specimen(s) by brushing or washing, when performed (separate procedure) Diagnosis Code(s): --- Professional --- K44.9, Diaphragmatic hernia without obstruction or gangrene R93.3, Abnormal findings on diagnostic imaging of other parts of digestive tract CPT copyright 2017 [employer]. All rights reserved. The codes documented in this report are preliminary and upon inpatient coder review may be revised to meet current compliance requirements. Jonathan Ward MD 08/22/2019 7:53:03 AM This report has been signed electronically. Number of Addenda: 0 Note Initiated On: 08/22/2019 7:37 AM
[2019-08-22 07:55] VITALS: BP 123/73; BP 95/53; PULSE 82; RESP 16; TEMP 36.6; O2SAT 96
[2019-08-22 08:00] VITALS: BP 104/65; BP 123/73; PULSE 84; RESP 16; O2SAT 96
[2019-08-22 08:05] VITALS: BP 100/62; BP 123/73; PULSE 82; RESP 16; O2SAT 96
[2019-08-22 08:10] VITALS: BP 114/67; BP 123/73; PULSE 78; RESP 16; TEMP 37.1; O2SAT 98
[2019-08-22 08:31] VITALS: BP 123/73
== END 2019-08-22 08:50 | disposition home or self-care (01) ==
LOC: EN 07:00 → AC 07:01
PROVIDERS: PCP Physician Assistant; Referring Provider Physician Assistant; Visit Provider Surgery
PROC: 0DJ08ZZ Inspection of Upper Intestinal Tract, Via Natural or Artificial Opening Endoscopic (ICD-10-PCS; CPT 43235; principal; 2019-08-22 07:55)
DX: K44.9 Diaphragmatic hernia without obstruction or gangrene (principal); K21.9 Gastro-esophageal reflux disease without esophagitis; R93.3 Abnormal findings on diagnostic imaging of other parts of digestive tract; I10 Essential (primary) hypertension; E78.00 Pure hypercholesterolemia, unspecified; E03.9 Hypothyroidism, unspecified; F17.200 Nicotine dependence, unspecified, uncomplicated; Z79.899 Other long term (current) drug therapy
CPT/HCPCS: 43235; J7120; J2405

== ENCOUNTER → 2021-06-09 15:26 | Outpatient (CLI) | payer OTHER, SELFPAY ==
--- NOTE | 2021-06-09 15:30 | BD_ITS ---
STUDY: DUAL ENERGY X-RAY ABSORPTIOMETRY / DXA REASON FOR EXAM: Female, 65 years old. M810 TECHNIQUE: Bone Mineral Density (BMD) measurements of lumbar spine and bilateral hips were obtained. COMPARISON: None. FINDINGS: Lumbar Spine (L1-L4): g/cm2 (0.786) / T-score (-2.4) / Z-score (-0.6) Findings are suggestive of osteopenia with a high fracture risk. Left Femur Total: g/cm2 (0.886) / T-score (-0.5) / Z-score (0.8) Left Femoral Neck: g/cm2 (0.612) / T-score (-2.1) / Z-score (-0.6) Right Femur Total: g/cm2 (0.756) / T-score (-1.5) / Z-score (-0.3) Right Femoral Neck: g/cm2 (0.596) / T-score (-2.3) / Z-score (-0.7) BD/Dexa Bone Density Study IMPRESSION: The patient is considered osteopenic as outlined below according to World Juan Organization (WHO) criteria with a high fracture risk. Reference Information: The T-score is the number of standard deviations above or below the standard which is normal for young adults at their peak bone mineral density. The World Health Organization (WHO) interprets the T-scores as follows: Above -1 Normal bone density Between -1 and -2.5 Osteopenia Equal to / or below -2.5 Osteoporosis As a practical clinical guideline, osteopenia may be graded as follows: Mild -1 through -1.5 Moderate -1.6 through -2.0 Severe -2.1 through -2.4 The Z-score is the number of standard deviations above or below age-matched controls. A Z-score of less than -1.5 would be considered abnormal. References: 1. NIH Osteoporosis and Related Bone Diseases www osteo.org 2. International Society for Clinical Densitometry www iscd.org 3. National Osteoporosis Foundation www nof.org Electronically Signed: Jose Amador MD at 14:11 EST , Service support ,
--- NOTE | 2021-06-09 15:31 | BI_ITS ---
MAMMOGRAPHY - BILATERAL SCREENING REASON FOR EXAM: Female, 65 years old. Routine annual screening examination. PERTINENT HISTORY: Non-contributory. TECHNIQUE: Digital bilateral breast loni (3D mammographic acquisition) in the CC and MLO projections. 2-D mediolateral oblique (MLO) and craniocaudad (CC) views of both breasts were obtained. CAD: Full Field Digital Mammography with Computer Added Detection was performed. COMPARISON: Comparison is made with prior outside examination dated 07/31/2017. FINDINGS: Breast Composition: There are scattered areas of fibroglandular density. There are no dominant masses or suspicious calcifications. Stable small benign-appearing bilateral axillary lymph. No other significant abnormalities are identified. There has been no significant change since the prior study. BI/SCRN MAMM (CAD)W/LONI BILAT IMPRESSION: Stable bilateral screening mammogram. Yearly follow-up mammogram recommended. (A) ASSESSMENT CATEGORY: BIRADS Category 2: Benign. A letter regarding these results will be sent to the patient by the facility within 30 days. Approximately 10% of breast cancers are not detected by mammography. A normal mammogram should not delay biopsy of a clinically suspicious abnormality. [id number] Electronically Signed: Jose Amador MD at 8:00 EST , Service support ,
--- NOTE | 2021-06-09 16:08 | RAD_ITS ---
STUDY: XR Shoulder Min 2 Views REASON FOR EXAM: Female, 65 years old. PAIN TECHNIQUE: XR Shoulder Min 2 Views COMPARISON: None. FINDINGS: Normal glenohumeral articulation. Normal acromioclavicular joint. Normal acromion. Normal humeral head and visualized proximal humerus. The soft tissue structures are unremarkable. Normal visualized pulmonary apex. RAD/Shoulder min 2 Views IMPRESSION: There are no acute findings of the shoulder. Electronically Signed: Rupesh Gonzalez MD at 20:57 EST , Service support ,
== END ==
PROVIDERS: PCP Physician Assistant; Referring Provider Physician Assistant; Visit Provider Physician Assistant
DX: M25.511 Pain in right shoulder (principal); M81.0 Age-related osteoporosis without current pathological fracture; Z12.31 Encounter for screening mammogram for malignant neoplasm of breast
CPT/HCPCS: 73030; 77063; 77067; 77080

== ENCOUNTER → 2022-06-08 | Outpatient (CLI) | payer OTHER, SELFPAY ==
--- NOTE | 2022-06-08 14:01 | CT_ITS ---
STUDY: LOW DOSE CT LUNG CANCER SCREENING REASON FOR EXAM: Female, 66 years old. Lung cancer screening -- 69 pk yr hx;current smoker; asymptomatic RADIATION DOSAGE (If Supplied By Facility): CTDIvol = ( 2.01 ) mGy, DLP = ( 59.67 ) mGycm TECHNIQUE: No contrast was administered. Low dose technique was utilized (average mAS-38 and kVp 120). 1.25 mm axial source images with a slice interval of 1.25-mm were reconstructed in lung windows. 2.5 mm axial source images with a slice interval of 2.5-mm were reconstructed in lung windows. 5.0 mm axial source images with a slice interval of 5.0-mm were reconstructed in soft tissue windows. COMPARISON: Comparison is made with prior examination dated 06/16/2019. NODULES: No suspicious nodules are seen. Emphysema: Hyperinflation. Mild degree of the scarring in the lung apices. Stable linear scarring in the lingular segment of the left upper lobe. Endobronchial lesion: None Aorta: Atherosclerotic plaque formation. CORONARY ARTERIES: Coronary artery calcification is seen. Heart: Unremarkable Pulmonary artery: Unremarkable Mediastinal nodes: Unremarkable Other chest and abdominal findings: CT/Low Dose CT Lung Screening IMPRESSION: Lung-RADS category 2 - Continue annual screening with LDCT in 12 months. IMPORTANT NOTES FOR USE: ACR Lung-RADS Version 1.1 Assessment Categories Release Date: 2018 Category: Coded 0-4 bases on nodule(s) with highest degree of suspicion. Negative screen is defined as categories 1 and 2; a positive screen is defined as categories 3 and 4. Category 3 and 4A nodules that are unchanged on interval CT should be coded as category 2, and individuals returned to screening in 12 months. Category 4X: Category 3 or 4 nodules with additional imaging findings that increase the suspicion of lung cancer, such as spiculation, GGN that doubles in size in 1 year, enlarged lymph notes, etc. Category Modifiers: S (significant finding unrelated to lung cancer) Electronically Signed: Jose Amador MD at 14:35 EST ,
== END | disposition home or self-care (01) ==
LOC: CT 13:59
PROVIDERS: PCP Physician Assistant; Referring Provider Nurse Practitioner Family; Visit Provider Nurse Practitioner Family
DX: Z87.891 Personal history of nicotine dependence (principal)
CPT/HCPCS: 71271

== ENCOUNTER → 2023-07-12 | Outpatient (CLI) | payer MEDICARE, SELFPAY ==
--- NOTE | 2023-07-12 15:56 | BI_ITS ---
MAMMOGRAPHY - BILATERAL SCREENING REASON FOR EXAM: Female, 67 years old. Routine annual screening examination. PERTINENT HISTORY: Non-contributory. TECHNIQUE: Digital bilateral breast loni (3D mammographic acquisition) in the CC and MLO projections. 2-D mediolateral oblique (MLO) and craniocaudad (CC) views of both breasts were obtained. CAD: Full Field Digital Mammography with Computer Added Detection was performed. COMPARISON: Comparison is made with prior study dated March 10, 2021. FINDINGS: Breast Composition: There are scattered areas of fibroglandular density. There are no dominant masses or suspicious calcifications. Stable small benign-appearing bilateral axillary lymph nodes. No other significant abnormalities are identified. There has been no significant change since the prior study. BI/SCRN MAMM (CAD)W/LONI BILAT IMPRESSION: Stable bilateral screening mammogram. Yearly follow-up mammogram recommended. (A) ASSESSMENT CATEGORY: BIRADS Category 2: Benign. A letter regarding these results will be sent to the patient by the facility within 30 days. Approximately 10% of breast cancers are not detected by mammography. A normal mammogram should not delay biopsy of a clinically suspicious abnormality. [id number] Electronically Signed: Jose Amador MD at 9:45 EST ,
--- NOTE | 2023-07-12 15:58 | BD_ITS ---
STUDY: DUAL ENERGY X-RAY ABSORPTIOMETRY / DXA REASON FOR EXAM: Female, 67 years old. M85.89 TECHNIQUE: Bone Mineral Density (BMD) measurements of lumbar spine and bilateral hips were obtained. COMPARISON: Comparison is made with prior study dated June 09, 2021. FINDINGS: Lumbar Spine (L1-L4): g/cm2 (0.786) / T-score (-2.4) / Z-score (-0.4) Findings are suggestive of osteopenia with a high fracture risk. Left Femur Total: g/cm2 (0.776) / T-score (-1.4) / Z-score (0.0) Left Femoral Neck: g/cm2 (0.626) / T-score (-2.0) / Z-score (-0.4) Right Femur Total: g/cm2 (0.736) / T-score (-1.7) / Z-score (-0.3) Right Femoral Neck: g/cm2 (0.585) / T-score (-2.4) / Z-score (-0.7) The T-Scores on the most recent prior examination were: Lumbar Spine (L1-L4): There has been improvement of bone density since the previous examination. Left Femur Total: which represents a worsening of 12.3%. Right Femur Total: which represents a worsening of 2.7%. BD/Dexa Bone Density Study IMPRESSION: The patient is considered osteopenic as outlined below according to World [place] Organization (WHO) criteria with a moderate fracture risk. There has been worsening of bone density since the previous examination. Reference Information: The T-score is the number of standard deviations above or below the standard which is normal for young adults at their peak bone mineral density. The World Health Organization (WHO) interprets the T-scores as follows: Above -1 Normal bone density Between -1 and -2.5 Osteopenia Equal to / or below -2.5 Osteoporosis As a practical clinical guideline, osteopenia may be graded as follows: Mild -1 through -1.5 Moderate -1.6 through -2.0 Severe -2.1 through -2.4 The Z-score is the number of standard deviations above or below age-matched controls. A Z-score of less than -1.5 would be considered abnormal. References: 1. NIH Osteoporosis and Related Bone Diseases www osteo.org 2. International Society for Clinical Densitometry www iscd.org 3. National Osteoporosis Foundation www nof.org Electronically Signed: Jose Amador MD at 8:31 EST ,
--- OUTSIDE RECORDS SUMMARY | 2023-07-12 16:13 | XMS RPT_ITS | CCD ---
Author Name Unknown Address [address] [facility] [address] [place] [address] Organization [facility] Care Team Providers Care Computer Systems Technology Instructor Name Role Phone TYLOR ERNANDEZ Admitting Unavailable TYLOR ERNANDEZ Attending Unavailable TYLOR ERNANDEZ Primary Care Unavailable CRYSTAL GARCÍA Consulting Unavailable PROVIDER, UNKNOWN Consulting Unavailable PROVIDER, UNKNOWN Consulting Unavailable PROVIDER, UNKNOWN Consulting Unavailable TYLOR ERNANDEZ Admitting Unavailable TYLOR ERNANDEZ Attending Unavailable TYLOR ERNANDEZ Primary Care Unavailable CRYSTAL GARCÍA Consulting Unavailable PROVIDER, UNKNOWN Consulting Unavailable PROVIDER, UNKNOWN Consulting Unavailable PROVIDER, UNKNOWN Consulting Unavailable RADHA KELLY Admitting Unavailable RADHA KELLY Attending Unavailable RADHA KELLY Primary Care Unavailable CRYSTAL GARCÍA Consulting Unavailable PROVIDER, UNKNOWN Consulting Unavailable PROVIDER, UNKNOWN Consulting Unavailable PROVIDER, UNKNOWN Consulting Unavailable Radha Kelly PA-C Unavailable Radha Kelly PA-C Unavailable Dr. Lashae Redmond MD ([place]) Unavailable Dr. Karel Valentine MD Unavailable Dr. Tylor Ernandez MD Unavailable General Surgery Provider Unavailable Unavail able [facility] Unavailable Pulmonary Provider Unavailable Unavailable Junoir Young MD Unavailable Arlene Arnold LPN Unavailable Unavailable Annika Aragon LPN Unavailable Unavailable Marcia Ragland LPN Unavailable Unavailable Crystal García MD Unavailable Falguni Cordero PA-C Unavailable Carmen Morales Unavailable Unavailable Andrew IBARRA, Lauren Muleler Unavailable Unavail able Marti Alejandro MA Unavailable Unavailable Heide Ernandez RN Unavailable Rosario IBARRA, Cindy Avila Unavailable Unavailable [place]augh HUMAN RESOURCE PROFESSIONAL, Glo K Unavailable Unavai ivon Jermainedean HUMAN RESOURCE PROFESSIONAL, Di L Unavailable Unavailab le Jennifer HUMAN RESOURCE PROFESSIONAL, Allison Álvarez Unavailable Unavailab le Krystal HUMAN RESOURCE PROFESSIONAL, Lorin Soto Unavailable Unavailab paula Washington MA, Rasheeda Unavailable Unavailable Vess HUMAN RESOURCE PROFESSIONAL, Rupert L Unavailable Unavailable Wengerd HUMAN RESOURCE PROFESSIONAL, Abbey Unavailable Unavailabl e Emiliana HUMAN RESOURCE PROFESSIONAL, Amber Oliveira Unavailable Unavaila ble Unavailable Unavailable Allergies Allergy Classification Reported Allergen(s) Allergy Type Date of Onset Reaction(s) Facility (1 source) Simvastatin Drug Allergy [facility] Medications Current Medications Medication Drug Class(es) Dates Sig (Normalized) Sig (Original) alendronic acid 70 mg oral tablet (1 source) Bisphosphonate Start: 04-26-2023 Fosamax 70 mg tablet ; 1 (one) Tablet once a week for 0 days Quantity: 12 {Tablet} Refills: 1 Ordered: 26-Apr-2023 GRAEME Kelly Start: 26-Apr-2023 ascorbic acid 1000 mg oral tablet (1 source) Vitamin C take 1 tablet by mouth once daily Vitamin C 1000 MG Oral Tablet ; 1 daily (1000 MG) atorvastatin 40 mg oral tablet (3 sources) HMG-CoA Reductase Inhibitor Start: 04-26-2023 atorvastatin 40 mg tablet ; 1 Tablet with evening meal for 0 days Quantity: 90 {Tablet} Refills: 1 Ordered: 26-Apr-2023 GRAEME Kelly Start: 26-Apr-2023 Completed/Discontinued Medications Medication Drug Class(es) Dates Sig (Normalized) Sig (Original) amoxicillin 875 mg / clavulanate 125 mg oral tablet (1 source) Penicillin-class Antibacterial Start: 12-31-2015 End: 01-07-2016 take 1 tablet by mouth twice daily at mealtime AUGMENTIN, 875-125MG (Oral Tablet) ; 1 (one) Tablet two times daily for 7 days Quantity: 14 {Tablet} Refills: 0 Ordered: 31-Dec-2015 MD Crystal García Start: 31-Dec-2015 End: 07-Jan-2016 Status: Inactive Comments: Take with food Problems Active Problems Problem Classification Problem Date Documented Da te Episodic/Chronic Administrative/social admission (20 sources) Patient encounter status; Translations: [Tobacco abuse counseling] 03-10-2019 Episodic Allergic reactions (4 sources) Contact dermatitis and other eczema, unspecified cause 04-21-2016 Episodic Cardiac dysrhythmias (5 sources) Palpitations; Translations: [Palpitations] 04-26-2022 Episodic Diabetes mellitus without complication (8 sources) Impaired fasting glycemia; Translations: [Impaired fasting glucose] 04-26-2022 Episodic Disorders of lipid metabolism (20 sources) Hyperlipidemia; Translations: [Hyperlipidemia, unspecified] 04-26-2023 Chronic Esophageal disorders (7 sources) Gastroesophageal reflux disease; Translations: [Gastro-esophageal reflux disease without esophagitis] 04-26-2023 Chronic Essential hypertension (16 sources) Benign hypertension; Translations: [Essential (primary) hypertension] 04-26-2023 Chronic Genitourinary symptoms and ill-defined conditions (3 sources) Urinary symptoms ; Translations: [Unspecified symptoms and signs involving the genitourinary system] 04-30-2023 Episodic Inflammatory diseases of female pelvic organs (2 sources) Bacterial vaginosis; Translations: [Acute vaginitis] 05-17-2018 Episodic Mycoses (2 sources) Dermatomycosis, unspecified 03-10-2019 Episodic Nutritional deficiencies (5 sources) Vitamin D deficiency; Translations: [Vitamin D deficiency, unspecified] 04-26-2023 Chronic Osteoporosis (12 sources) Osteoporosis; Translations: [Age-related osteoporosis without current pathological fracture] 04-26-2022 Chronic Other aftercare (3 sources) Drug indicated; Translations: [Other senior living (current) drug therapy] 04-21-2016 Episodic Other bone disease and musculoskeletal deformities (8 sources) Osteopenia; Translations: [Other specified disorders of bone density and structure, unspecified site] 04-26-2023 Episodic Other ear and sense organ disorders (3 sources) Impacted cerumen 03-10-2019 Episodic Other gastrointestinal disorders (2 sources) Stool DNA-based colorectal cancer screening positive; Translations: [Other fecal abnormalities] 04-28-2019 Episodic Other lower respiratory disease (2 sources) Apnea; Translations: [Apnea, not elsewhere classified] 04-28-2019 Episodic Other lower respiratory disease (2 sources) Snoring; Translations: [Snoring] 03-10-2019 Episodic Other non-traumatic joint disorders (3 sources) Pain in right shoulder; Translations: [Pain in joint, shoulder region] 04-26-2023 Episodic Other screening for suspected conditions (not mental disorders or infectious disease) (6 sources) Screening status; Translations: [Encounter for screening for diabetes mellitus] 04-21-2016 Episodic Other upper respiratory infections (5 sources) Sinusitis; Translations: [Chronic sinusitis, unspecified] 03-10-2019 Chronic Residual codes; unclassified (2 sources) Hypersomnia, unspecified 03-10-2019 Episodic Residual codes; unclassified (2 sources) Influenza vaccination declined; Translations: [Immunization not carried out because of patient refusal] 03-10-2019 Episodic Residual codes; unclassified (2 sources) Memory loss 04-26-2022 Episodic Residual codes; unclassified (2 sources) Asymptomatic postmenopausal status (age-related) (natural) 04-26-2022 Episodic Substance-related disorders (7 sources) Tobacco user; Translations: [Nicotine dependence, unspecified, uncomplicated] 04-26-2023 Chronic Thyroid disorders (20 sources) Hypothyroidism; Translations: [Hypothyroidism, unspecified] 04-26-2023 Chronic Unclassified (1 source) deliveries 04-26-2023 Past or Other Problems Problem Classification Problem Date Documented Da te Episodic/Chronic Other gastrointestinal disorders (1 source) Other fecal abnormalities; Translations: [Other fecal abnormalities] Onset: 08-27-2018 Episodic Unclassified (1 source) MCR Well Adult - In general the patient feels well with no complaints, has good energy level and is sleeping well. The patient has a balanced diet and takes supplemental vitamins. The patient does not exercise and sleeps 6 hours per night. The patient denies having trouble with bathing, dressing/grooming, toileting, preparing meals and ambulating. The patient denies having trouble with grocery shopping, driving, use of telephone, housework, laundry, preparing/taking medications and finances. The patient performs monthly self breast exam. The patient does not have Healthcare Power of Ppap Coordinator or Living Will. Note for MCR Well Adult : See ROS - some urinary symptoms. 04-26-2023 Unclassified (1 source) Well adult female - The patient feels well with no complaints, has decreased energy level and is sleeping well. The patient has a balanced diet and takes supplemental vitamins. The patient exercises 3 - 4 times per week. The patient sleeps 6 hours per night. Note for Well adult female : Would like to get massages for shoulder, neck and right low back pain - has HSA funds she can use for that but needs rx. 04-26-2022 Unclassified (1 source) Well adult female - The patient feels well with minor complaints, has decreased energy level and is sleeping poorly (at times). The patient has a balanced diet and takes supplemental vitamins (vitamin D). The patient does not exercise. The patient sleeps 6 hours per night. 04-16-2020 Unclassified (1 source) Well adult female - The patient feels well with minor complaints (is wondering about her osteopenia), has good energy level (right now it is a little lower - but has been working a lot) and is sleeping poorly (depends on day - workng a lot of hours). The first day of the last menstrual period was : (12/2011). The current method of contraception is: tubal ligation. The patient takes no supplemental vitamins & iron. The patient does not exercise. The patient sleeps 4 hours per night. 05-11-2017 Unclassified (1 source) Well Adult, female - The patient feels well with minor complaints, has decreased energy level and is sleeping poorly (works 3rd shift). The first day of the last menstrual period was : (absent-menopause). The patient has a balanced diet and takes supplemental vitamins. The patient exercises weekly. The patient sleeps 6 hours per night. Note for Well Adult, female : Patient will be getting her flu shot at her place of employment. 04-21-2016 Unclassified (1 source) Cold Symptoms - Symptoms include sneezing, nasal congestion, runny nose, ear pain (bilateral), ear fullness, scratchy throat, productive cough, fever (did not check temperature but felt like she was running a fever.), headache and facial pain, but do not include general malaise. The onset was sudden 10 day(s) ago. The symptoms occur constantly. The patient describes this as moderate in severity and unchanged. Current treatment includes non-prescription cold medication. Patient denies history of seasonal allergies or asthma. 12-27-2015 Unclassified (1 source) Form completion physical - The patient feels well with no complaints, has decreased energy level and is sleeping well. There are no current symptoms. The patient exercises weekly. The patient has an appropriate balanced diet and sleeps on average 6 hours per night. Habits include caffeine and tobacco use. Safety measures include appropriate use of safety belts. There are no behavioral problems. Note for Form completion physical : Was given chantix last year but didn't take it - was scared to side effects. Has tried patches in the past but didn't feel it helped enough. Is motivated to quit smoking.Mammogram is scheduled for 04/28/14. 04-26-2014 Unclassified (1 source) Well adult female - The patient feels well with minor complaints (Has had sinus symptoms x 2 weeks. Yellow nasal drainage. Cough seems to be related to drainage. Has taken advil cold and sinus x 10 days without improvement.), has decreased energy level and is sleeping well. The first day of the last menstrual period was : (11 years ago). The patient has a balanced diet and takes supplemental vitamins. The patient does not exercise. The patient sleeps 7 hours per night. Note for Well adult female : Stopped her thyroid medication in late summer because she was having palpitations and thought it might be from the medication. They have decreased but she continues with them. Mostly notices them at night when she is lying down. Feels irregular at times too. 05-09-2013 Unclassified (1 source) Well Adult, female - The patient feels well with minor complaints (cold symptoms , cough low grade fever x 3-4 days.). Most recent Pap smear : (2008). The first day of the last menstrual period was : (2002). Date of last mammogram none (needs an order). Date of last DEXA : (2005). Date of most recent cholesterol screening : (04/01/2012). Date of most recent glucose screening : (102 04/01/12). Patient has not had a Pneumovax vaccine. Date of most recent influenza vaccine : (2010). Last Tetanus booster: more than 10 year(s) ago. The patient has a balanced diet. The patient exercises weekly. The patient sleeps 7 hours per night. Note for Well Adult, female : Last colonoscopy was 01/2011 - done with Dr. Tylor Ernandez. 04-03-2012 Unclassified (1 source) Cold Symptoms - Symptoms include sneezing, nasal congestion, ear pain, sore throat, productive cough, general malaise and headache. The onset was sudden 3 week(s) ago. The symptoms occur constantly. The patient describes this as moderate in severity and worsening. Risk factors include smoking. 12-06-2011 Unclassified (1 source) [facility] Routine Follow up - The patient is here for follow-up of hyperlipidemia (last lipid was December 2009) and other condition(s) (Hypothyroid last tsh Jul 2009). The patient always takes the prescribed medications. No side effects noted. The patient has low activity level and no regular program. The patient's out of office blood pressure checks occur occasionally and dietary compliance is fair often eating foods not normally recommended. 03-10-2011 Unclassified (1 source) Rash - The onset of the rash has been acute and has been occurring in a persistent pattern for 2 months. The course has been constant. The rash is characterized as red, raised above the skin (newer) and flat (older). The rash was first seen on the lower extremity (ankles). It spread to the trunk (left abd) and the upper extremity. There has been associated itching, while there has been no associated pain or drainage. There has been no associated chills, fever, loss of sensation, lymphadenopathy or mucous membrane lesions. Note for Rash : has also noted some increased nasal congestion and rhinorrhea 10-24-2010 Unclassified (1 source) Ear pain - The onset of the pain has been sudden and has been occurring in a persistent pattern for 1 week. The course has been constant (feel like pressure notices decreased hearing). The pain is described as a moderate plugged (thought got water in ear during shower about a week and half ago. Never went away). The pain is described as being located in the inner ear. The pain is felt in the right ear. 08-17-2010 Results Test Name Value Interpretation Reference Range Facil ity Vital Signs Date Time Vital Sign Value Performing Clinician Faci lity 04-26-2023 09:19-0400 Body height 160.02 cm Allison Rodriguez LPN [facility], [facility].; [facility], [facility]. 04-26-2023 09:19-0400 Body mass index (BMI) [Ratio] 27.46 kg/m2 Allison Rodriguez LPN [facility], [facility].; [facility], [facility] 04-26-2023 09:19-0400 Body surface area Derived from formula 1.74 m2 Allison Rodriguez LPN [facility], [facility].; [facility], [facility]. 04-26-2023 09:040 Body weight 70.31 kg Allison Rodriguez LPN [facility], [facility].; [facility] 04-26-2023 09:190400 Diastolic blood pressure 74 mm[Hg] [facility], [facility]. Encounters Encounter Date Encounter Type Care Provider Facility Start: 07-04-2023 End: 07-04-2023 Orders Radha Kelly PA-C [facility]. Start: 04-30-2023 End: 04-30-2023 Orders Rad[facility]C [facility] Start: 04-26-2023 End: 04-26-2023 Patient encounter procedure Radha Kelly PA-C [facility]. Start: 04-26-2023 End: 04-26-2023 Physical examination Allison [facility] L[facility].; [facility] [employer] [facility], [facility]. Start: 04-16-2023 End: 04-16-2023 Orders Radha Kelly PA-C Work Phone[facility]. Start: 03-19-2023 End: 03-19-2023 Orders Radha Kelly PA-C [facility] Phone[facility] Start: 04-26-2022 End: 04-26-2022 Patient encounter procedure Radha Kelly PA-C Work Phone: [employer] [employer] Start: 04-26-2022 End: 04-26-2022 Periodic preventive med est patient 65yrs& older Radha Kelly PA-C Work Phone: [employer]. Start: 04-12-2022 End: 04-12-2022 Orders Radha Kelly PA-C Work Phone: [facility] Start: 06-13-2021 End: 06-13-2021 Orders Radha Weatherser PA-C Work Phone: [facility] Start: 04-28-2021 End: 04-28-2021 Patient encounter procedure Radha Weatherser PA-C Work Phone: [facility] Start: 04-28-2021 End: 04-28-2021 Patient encounter status Radha Weatherser PA-C Work Phone: [facility] Start: 04-19-2021 End: 04-20-2021 Orders Radha Weatherser PA-C Work Phone: [facility] Start: 02-18-2021 End: 02-21-2021 Orders Radha Weatherser PA-C Work Phone: [facility] Start: 04-16-2020 End: 04-16-2020 Patient encounter procedure Radha Weatherser PA-C Work Phone: [facility] Start: 03-22-2020 End: 03-22-2020 Orders Radha Kelly PA-C Work Phone: [facility] Start: 08-26-2019 End: 08-26-2019 Patient encounter procedure RADHA KELLY [facility] Start: 07-08-2019 End: 07-09-2019 Orders Radha Weatherser PA-C Work Phone: [facility] Start: 05-02-2019 End: 05-02-2019 Annotation/Addendum Radha Weatherser PA-C Work Phone: [facility] Start: 04-28-2019 End: 04-28-2019 Patient encounter procedure Abbey Che LPN [facility] Start: 04-28-2019 End: 04-28-2019 Periodic preventive med est patient 40-64yrs Radha Weatherser PA-C Work Phone: [facility] Start: 03-10-2019 End: 03-10-2019 Orders Radha Weatherser PA-C Work Phone: [facility] Start: 09-09-2018 End: 09-09-2018 Patient encounter procedure [facility] Start: 08-27-2018 End: 08-27-2018 Patient encounter procedure [facility] Start: 08-07-2018 End: 08-07-2018 Orders Radha Weatherser PA-C Work Phone: [facility] Start: 08-05-2018 End: 08-05-2018 Historical Summary Radha Weatherser PA-C Work Phone: [facility] Start: 05-17-2018 End: 05-17-2018 Medication Radha Weatherser PA-C Work Phone: [facility] Start: 04-22-2018 End: 04-22-2018 Patient encounter procedure Abbey Che LPN [facility] Start: 04-22-2018 End: 04-22-2018 Periodic preventive med est patient 40-64yrs Radha Weatherser PA-C Work Phone: [facility] Start: 04-16-2018 End: 04-16-2018 Orders Radha Weatherser PA-C Work Phone: [facility] Start: 08-08-2017 End: 08-08-2017 Medication Radha Kelly PA-C Work Phone: [facility] Start: 05-07-2017 End: 05-11-2017 Manual pelvic examination Radha Weatherser PA-C Work Phone: [facility] Start: 05-07-2017 End: 05-11-2017 Periodic preventive med est patient 40-64yrs Radha Kelly PA-C Work Phone: [facility] Start: 05-04-2017 End: 05-04-2017 Historical Summary Radha Kelly PA-C Work Phone: [facility] Start: 04-30-2017 End: 04-30-2017 Orders Radha Weatherser PA-C Work Phone: [facility] Start: 04-18-2017 End: 04-18-2017 Orders Radha Weatherser PA-C Work Phone: [facility] Start: 08-29-2016 End: 08-29-2016 Orders Radha Weatherser PA-C Work Phone: [facility] Start: 07-28-2016 End: 07-29-2016 Medication Radha Kelly PA-C Work Phone: [facility] Start: 04-21-2016 End: 04-21-2016 Patient encounter procedure Radha Weatherser PA-C Work Phone: [facility] Start: 04-21-2016 End: 04-21-2016 Patient encounter status Radha Weatherser PA-C Work Phone: [facility] Start: 04-10-2016 End: 04-10-2016 Orders Radha Kelly PA-C Work Phone: [facility] Start: 04-07-2016 End: 04-07-2016 Orders Radha Kelly PA-C Work Phone: [facility] Start: 03-27-2016 End: 03-27-2016 Orders Radha Kelly PA-C Work Phone: [facility] Start: 12-27-2015 End: 12-27-2015 Office outpatient visit 15 minutes Radha Weatherser PA-C Work Phone: [facility] Start: 04-19-2015 End: 04-19-2015 Manual pelvic examination Radha Kelly PA-C Work Phone: [facility] Start: 04-19-2015 End: 04-19-2015 Patient encounter procedure Radha Kelly PA-C Work Phone: [facility] Start: 04-09-2015 End: 04-09-2015 Orders Radha Kelly PA-C Work Phone: [facility] Start: 03-26-2015 End: 03-26-2015 Orders Radha Kelly PA-C Work Phone: [facility] Start: 04-24-2014 End: 04-26-2014 Patient encounter procedure Radha Kelly PA-C Work Phone: [facility] Start: 04-15-2014 End: 04-15-2014 Orders Radha Kelly PA-C Work Phone: [facility] Start: 08-29-2013 End: 08-29-2013 Orders Radha Kelly PA-C Work Phone: [facility] Start: 08-04-2013 End: 08-04-2013 Medication Radha Kelly PA-C Work Phone: [facility] Start: 08-01-2013 End: 08-01-2013 Orders Radha Kelly PA-C Work Phone: [facility] Start: 07-25-2013 End: 07-25-2013 Medication Radha Kelly PA-C Work Phone: [facility] Start: 06-26-2013 End: 06-26-2013 Medication Radha Kelly PA-C Work Phone: [facility] Start: 05-15-2013 End: 05-15-2013 Medication Radha Kelly PA-C Work Phone: [facility] Start: 05-12-2013 End: 05-12-2013 Orders Radha Kelly PA-C Work Phone: [employer] Start: 05-09-2013 End: 05-09-2013 Manual pelvic examination Radha Weatherser PA-C [facility] [place] [facility] Start: 05-09-2013 End: 05-09-2013 Patient encounter procedure Radha Kelly PA-C [facility] Start: 04-15-2013 End: 04-15-2013 Orders Radha Kelly PA-C [facility] Start: 12-06-2012 End: 12-06-2012 Orders Radha Kelly PA-C [facility] Start: 04-01-2012 End: 04-01-2012 Nursing evaluation of patient and report Radha Kelly PA-C [facility] Start: 04-01-2012 End: 04-03-2012 Manual pelvic examination Radha Kelly PA-C Work Phone: [facility] [employer] Start: 04-01-2012 End: 04-03-2012 Patient encounter procedure Radha Kelly PA-C [facility] Start: 01-31-2012 End: 01-31-2012 Medication Radha Kelly PA-C Work Phone: [place] [employer] [facility] Start: 12-27-2011 End: 12-27-2011 Medication Radha Kelly PA-C Work Phone: [place] [employer] [facility] Start: 12-16-2011 End: 12-16-2011 Medication Radha Kelly PA-C [facility] Start: 12-05-2011 End: 12-06-2011 Patient encounter procedure Radha Kelly PA-C Work Phone: [place] [employer] [facility] Start: 09-11-2011 End: 09-11-2011 Patient encounter procedure Radha Kelly PA-C Work Phone: [facility] [facility] Start: 09-05-2011 End: 09-05-2011 Medication Radha Kelly PA-C [facility] Start: 08-21-2011 End: 08-22-2011 Orders Radha Kelly PA-C [facility] Start: 08-18-2011 End: 08-18-2011 Orders Radha Kelly PA-C [facility] Start: 07-11-2011 End: 07-11-2011 Orders Radha Kelly PA-C [facility] Start: 03-10-2011 End: 03-10-2011 Patient encounter procedure Radha Kelly [facility]-C [facility] Start: 02-13-2011 End: 02-13-2011 Medication Radha Kelly PA-C [facility] Phone[facility] Start: 10-24-2010 End: 10-24-2010 Patient encounter procedure Radha Kelly PA-C [facility] Start: 08-17-2010 End: 08-17-2010 Patient encounter procedure Radha Kelly PA-C [facility] Start: 03-04-2010 End: 03-04-2010 Historical Summary Radha Kelly [facility]-C [facility] Manual pelvic examination Radha Gutierrez Klely PA-C Work Phone: [facility].; [facility]. Manual pelvic examination Amber Hopson LPN [facility].; [facility]. Manual pelvic examination Radha J Kelly PA-C Work Phone: [facility].; [facility] Patient encounter procedure Abbey Che HUMAN RESOURCE PROFESSIONAL [facility].; [facility]. Patient encounter procedure Radha Weatherser PA-C Work Phone: [facility].; [facility] Patient encounter status Allison castillo HUMAN RESOURCE PROFESSIONAL [facility].; [facility]. Patient encounter status Abbey Yane HUMAN RESOURCE PROFESSIONAL [facility].; [facility] Procedures Date Procedure Procedure Detail Performing Clinician Start: 04-26-2023 End: 04-26-2023 Adv care pln/ no alt dcsn mkr docd or refusal Radha Gutierrez Kelly PA-C Work Phone: Start: 04-26-2023 End: 04-26-2023 Depression screening Radha Gutierrez Kelly PA -C Work Phone: Start: 04-26-2023 End: 04-26-2023 Falls risk assessment documented Radha Gutierrez Kelly PA-C Work Phone: Start: 04-26-2023 End: 04-26-2023 Initial preventive exam Radha Gutierrez Kelly PA-C Work Phone: Start: 04-26-2023 End: 04-26-2023 Pt falls assess docd w/o fall/injury past year Radha Gutierrez Kelly PA-C Work Phone: Start: 04-26-2023 End: 04-26-2023 Scr dep neg, no plan reqd Radha Gutierrez Palm er PA-C Work Phone: Start: 04-26-2023 End: 04-26-2023 Screening test visual acuity quantitative bilat Radha Gutierrez Kelly PA-C Work Phone: Start: 04-16-2023 End: 04-16-2023 Lab findings surveillance Allison landis 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 Start: 10-01-2023 Lipid panel LIPID PANEL (8 0061) Start: 01-Oct-2023 Request [facility] Start: 04-30-2023 Culture bacterial quanttative colony count urine URINE SOFY CULTURE-ASHKAN COL COUNT Start: 30-Apr-2023 13:05 Request [facility] [employer] Start: 04-30-2023 Urnls dip stick/tabl et reagent auto microscopy URINALYSIS, AUTOMATED W/ MICRO (93990) Start: 30-Apr-2023 13:05 Request [facility] [employer]. Start: 04-26-2023 Dxa bone density viviane dy 1/> sites axial skel Bone Density (45150) Start: 26-Apr-2023 Intent [facility] [employer] [employer]. Start: 04-26-2023 Provider Instruction s for Treatment [facility] HM Issues, 50-64 female Indication: Welcome to Medicare preventive visit (Renamed from Encounter for initial preventive physical examination covered by Medicare) Start: 26-Apr-2023 Instruction Type: Provider Instructions for Treatment [facility] [employer] [employer]. Start: 04-26-2023 Screening digital br east tomosynthesis bi Mammogram 3D (tomosynthesis), bilateral (42155) Start: 26-Apr-2023 Intent [facility] Start: 04-26-2022 Provider Instruction s for Treatment [facility] HM Issues, 50-64 female Indication: Annual physical exam Start: 26-Apr-2022 Instruction Type: Provider Instructions for Treatment [facility] [employer] [employer]. Start: 04-26-2022 Screening digital br east tomosynthesis bi Mammogram 3D (tomosynthesis), bilateral (78255) Start: 26-Apr-2022 Intent [facility] [employer] [employer]. Start: 06-13-2021 25 hydroxy includes fractions if performed Vitamin D, 25-Hydroxy, LC/MS/MS (94040) Start: 13-Jun-2021 7:55 Request [facility] [employer] [employer]. Start: 04-28-2021 Provider Instruction s for Treatment [employer] Issues, 50-64 female Indication: Encounter for routine gynecological examination, 65+ (Renamed from Encounter for routine gynecological examination) Start: 28-Apr-2021 Instruction Type: Provider Instructions for Treatment [facility] [employer] Start: 02-18-2021 Screening mammograph y bi 2-view breast inc cad Mammogram Bilateral Screening (29502) Start: 18-Feb-2021 Intent [facility] [employer] [employer] Start: 04-16-2020 Provider Instruction s for Treatment [facility] HM Issues, 50-64 female Indication: Annual physical exam Start: 16-Apr-2020 Instruction Type: Provider Instructions for Treatment [facility] [employer] [employer] Start: 03-22-2020 Screening mammograph y bi 2-view breast inc cad Mammogram Bilateral Screening (30113) Start: 22-Mar-2020 Intent [facility] Start: 03-10-2019 Screening mammograph y bi 2-view breast inc cad Mammogram Bilateral Screening (40030) Start: 10-Mar-2019 Intent [employer] Immunizations Immunization Date Immunization Notes Care Provider Roz king 04-28-2021 pneumococcal conjuga te vaccine, 13 valent Radha Kelly PA-C Work Phone: [employer] [employer] Payers Date Payer Category Payer Unknown [id number] 1955 Unknown [id number] 1955 Unknown [id number] Private Health Insurance [id number] Unknown Social History Date Type Detail Facility Alcohol Use: Alcohol Use: ; None. [facility] [employer] [employer] Caffeine Use Caffeine Use [facility] [employer] Marital status: Marital status: ; . [facility] [place] Tobacco Use: Tobacco Use: ; C urrent every day smoker. [facility].; [facility] Female [facility] [employer] [employer] [employer] Work Phone: Occasional alcohol use [facility] [employer] [facility].; [facility] [employer]. Work Phone: Smokes tobacco daily [facility] [employer] [employer] Work Phone: [facility] [employer].; [facility] [employer] [employer] Work Phone: Mental Status Date Assessment Result Facility Memory difficulty Memory dif ficulty [facility] Summary Purpose Family History Breast Cancer Status:Active Comments:Mother. Cerebrovascular Accident Status:Active Comment s:Paternal Uncle. aunts Colon Cancer Status:Active Comments:Father. Coronary Artery Disease Status:Active Comments :Paternal Grandmother. Diabetes Mellitus Type II Status:Active Commen ts:Maternal Grandmother. Paternal Grandmother. aunts Hypertension Status:Active Comments:Father. Mother. Brother. Hypothyroidism Status:Active Comments:Mother. Osteoarthritis Status:Active Comments:Mother. Advance Directives No Advanced Directives Records FoundNo Advanced Directives Records FoundNo Advanced Directives Records Found Additional Source Comments INFORMATION SOURCE (unrecogn ized section and content) DATE CREATED AUTHOR AUTHOR'S ORGANIZ ATION 08/26/2019 [facility] DATE CREATED AUTHOR AUTHOR'S ORGANIZ ATION 04/29/2023 [facility] FOR RECORDS PERTAINING TO PATIENTS WHO ARE OR HAVE BEEN ENROLLED IN A CHEMICAL DEPENDENCY/SUBSTANCEABUSE PROGRAM, SOME INFORMATION MAY BE OMITTED. This clinical summary was aggregated from multiple sources. Caution should be exercised in using it in the provision of clinical care. This summary normalizes information from multiple sources, and as a consequence, information in this document may materially change the coding, format and clinical context of patient data. In addition, data may be omitted in some cases. CLINICAL DECISIONS SHOULD BE BASED ON THE PRIMARY CLINICAL RECORDS. [employer] provides no warranty or guarantee of the accuracy or completeness of information in this document.
== END | disposition home or self-care (01) ==
LOC: OPBI 15:54
PROVIDERS: PCP Physician Assistant; Referring Provider Physician Assistant; Visit Provider Physician Assistant
DX: Z12.31 Encounter for screening mammogram for malignant neoplasm of breast (principal); M85.89 Other specified disorders of bone density and structure, multiple sites
CPT/HCPCS: 77063; 77067; 77080

== ENCOUNTER 2023-07-23 10:47 | Day surgery (SDC) | payer MEDICARE, SELFPAY ==
[2023-07-23] VITALS (9 sets, daily range): BP systolic 112–161; BP diastolic 62–130; PULSE 79–97; RESP 16–20; TEMP 36.1–36.8; O2SAT 96–100; BMI 26.9
--- NOTE | 2023-07-23 | COLBX_PTH ---
PATHOLOGY RESULTS PATIENT: AUDI SANTIZO LOC: EN U#:[id number] AGE/SX: 67/F ROOM: RE07/23/[address]: Dr. Armando Babin DO : 1955 BED: DIS: 07/23/2023 SPEC #: [id number] RECD: 07/23/23 14:30 STATUS: NEREYDA REYinka #: [id number] MARISELA: 07/23/23 00:[address]: Armando Babin DEPT: SURGICAL PATHOLOGY RECD BY: Kobe Winslow ENTERED: 07/24/23 08:06 SP TYPE: COLON BX OTHR DR: HECTOR Esquivel Tissues: Transverse colon Procedures: Surgery Specimen Level IV HEADER OPERATION: Colonoscopy - open access with polyp biopsy PRE-OP DIAGNOSIS: Screening TISSUE SUBMITTED: Transverse colon polyp MICROSCOPIC DIAGNOSIS Transverse colon polyp, biopsy: Tubular adenoma. SJ:taylor 07/25/2023 MICROSCOPIC DESCRIPTION Slides are reviewed. GROSS DESCRIPTION Received in fixative is one container labeled with the patient's name and designated transverse colon polyp. The specimen consists of three irregular fragments of light neff soft tissue that in aggregate measure 0.6 x 0.5 x 0.1 cm. The specimen is totally submitted in one cassette. / SJ:taylor 07/24/2023 TC:1 CPT: 41429
[2023-07-23] MEDS: Lactated Ringers 1,000 ML 15 ML IV (11:00)
--- NOTE | 2023-07-23 12:01 | HP.PCM_ITS ---
[facility] - General General Date of Admission: 07/23/23 Date of Service: 07/23/23 Chief Complaint: Surveillance colonoscopy [facility] David SANTIZO, is a 67 F who presents today for surveillance colonoscopy. She had a colonoscopy approximately 3 years ago. She has a past medical history of acute cholecystitis status post cholecystectomy. She also has a history of osteoporosis, hypercholesterolemia, mild gastroesophageal reflux disease and hypothyroidism. She is not having any problems with swallowing, chest pain, shortness of breath or bleeding. She tolerated the prep without any problems. [facility] Medical History (Updated 07/19/23 @ 09:06 by Ted Moise) Apnea Bowel obstruction Elevated fasting blood sugar Encounter for screening for malignant neoplasm of lung in current smoker with 30 pack year history or greater Family history of colon cancer in father GERD (gastroesophageal reflux disease) Heart palpitations History of colon polyps HTN (hypertension) Hyperglycemia Hyperlipidemia Hypothyroidism Intestinal adhesions Memory difficulty Osteopenia Osteoporosis Positive colorectal cancer screening using Cologuard test Post-menopausal Smoker Tobacco use disorder Vitamin D deficiency Wears dentures Home Medications alendronate 70 mg tablet 70 mg PO MO bone health 06/16/19 [History Last Taken 07/14/19] atorvastatin 40 mg tablet 40 mg PO QHS cholesterol 06/16/19 [History Last Taken 07/18/19] multivitamin with folic acid 400 mcg tablet 1 tab PO DAILY supplement 06/16/19 [History Last Taken 07/18/19] omega-3 fatty acids-fish oil 340 mg-1,000 mg capsule 1 ea PO DAILY supplement 06/16/19 [History Last Taken 07/18/19] famotidine 20 mg tablet 20 mg PO DAILY Heartburn 07/19/19 [History Last Taken Unknown] ascorbic acid (vitamin C) 1,000 mg tablet (Vitamin C) 1 g PO Q6H 07/17/23 [History Last Taken Unknown] cholecalciferol (vitamin D3) 50 mcg (2,000 unit) capsule 50 mcg PO DAILY 07/17/23 [History Last Taken Unknown] levothyroxine 75 mcg tablet 88 mcg PO DAILY thyroid 07/17/23 [History Last Taken Unknown] magnesium 200 mg tablet 200 mg PO DAILY 07/17/23 [History Last Taken Unknown] Allergy/AdvReac Type Severity Reaction Status Date / Time chlorhexidine Allergy Mild rash Verified 07/19/23 08:59 simvastatin Allergy Other Verified 07/19/23 08:59 Family History (Updated 07/17/23 @ 12:25 by Alanna Boone) Uncle CVA (cerebral vascular accident) paternal Grandmother CAD (coronary artery disease) paternal Diabetes paternal and maternal Mother Osteoarthritis Hypertension Hypothyroidism Breast cancer Father Hypertension Colon cancer, Onset Age: 50 At age 50, Survived with treatment Brother Hypertension Aunt Diabetes CVA (cerebral vascular accident) Surgical History History of delivery History of colonoscopy (~2018) History of laparoscopic cholecystectomy (~07/2019) History of tubal ligation Social History Smoking Status: Current every day smoker tobacco type: cigarettes Tobacco: How many years used: 46 Electronic Cigarette Use: not used second hand exposure: No quit status: has quit before counseling given: provider counseling substance use type: does not use ROS Review of Systems ROS Unobtainable: other Constitutional Constitutional: Denies fatigue, fever(s), poor appetite, weight gain or weight loss ENT HEENT: Denies mouth lesions Cardiovascular Cardiovascular: Denies abdominal bloating, abdominal edema or abdominal pain Respiratory/Chest Respiratory/Chest: Denies change in mental status, change in phlegm color, chest congestion or chest tightness Gastrointestinal Gastrointestinal: Denies belching, bloating, change in bowel habits, change in stool character, chewing difficulty, coffee ground emesis, constipation, cramping, diarrhea, dyspepsia, dysphagia, early satiety, excessive flatus, fecal incontinence, heartburn, hematemesis, hematochezia, hemorrhoids, loose stools, melena, nausea, odynophagia, rectal bleeding, tenesmus, vomiting or weight changes Genitourinary Genitourinary: Denies abdominal discomfort, burning urination or itching Musculoskeletal Musculoskeletal: Reports as per HPI; Denies muscle weakness or myalgias Integumentary Integumentary: Denies jaundice Neurologic Neurologic: Denies lack of coordination or weakness Psychiatric Psychiatric: Denies confusion, depression, memory loss, mood swings, paranoia or suicidal ideation Endocrine Endocrinology: Denies systems reviewed and no addt'l complaints, except as documented Hematologic/Lymphatic Hematologic/Lymphatic: Denies anemia, easy bleeding, easy bruising or lymphadenopathy Allergic/Immunologic Allergic/Immunologic: Denies systems reviewed and no addt'l complaints, except as documented Vital Signs Vital Signs Vital Signs: 07/23/23 11:10 07/23/23 11:10 Temperature 98.2 F Temperature Source Temporal Pulse Rate 88 Respiratory Rate 16 Respiratory Pattern Normal Blood Pressure 132/84 H Blood Pressure Mean 100 Blood Pressure Source Monitor Blood Pressure Position Semi-Fowlers Blood Pressure Location Right Arm Pulse Ox 97 Oxygen Delivery Method Room Air Weight Weight: 151 lb 14.376 oz Body Mass Index (BMI) 26.9 Physical Exam Const alert General Appearance: cooperative Orientation / Consciousness: oriented to person HEENT hearing grossly normal bilaterally Head and Scalp: normal to inspection Face and Sinus: face symmetric Nose: external nose normal Mouth: oral and palatal mucosa normal Eyes conjunctivae normal General Eye: normal appearance of both eyes Neck full ROM General: normal visual inspection Lymph Lymphatic: no lymphadenopathy noted Chest inspection of chest normal and palpation of chest normal Chest: symmetrical chest wall rise Resp normal respiratory effort Effort and Inspection: able to speak in complete sentences Cardio regular rate GI non-distended Percussion: normal to percussion Rectal Exam: deferred Neuro Speech: speech normal Gait (Neuro): normal gait Assessment & Plan Assessment/Plan (1) Encounter for screening for malignant neoplasm of colon: PLAN: She was explained alternatives, risk, benefits including not withstanding bleeding, infection, sepsis, perforation, need for emergent surgery and . She will have an ASA of 3.
--- NOTE | 2023-07-23 12:48 | OP.CCLET_ITS ---
07/23/2023 Lissette Kelly Re : Colonoscopy procedure for Ivett Kelly This procedure was performed on Sunday, July 23, 2023. My impressions and recommendations are as follows: Impressions : - Diverticulosis in the recto-sigmoid colon. - One 7 mm polyp in the transverse colon, removed with a cold snare. Resected and retrieved. - Non-bleeding internal hemorrhoids. - Rectal prolapse. Recommendations : - Discharge patient to home. - Resume previous diet. - Continue present medications. - Await pathology results. - Repeat colonoscopy in 5 years for surveillance. My findings are described in the full procedure note, which is enclosed. If I can be of further assistance, please feel free to contact me at . Sincerely, Armando Babin, 07/23/2023 12:47:48 PM This report has been signed electronically.
--- NOTE | 2023-07-23 12:48 | OP.COLON_ITS ---
Patient Name: Ivett Ortega Procedure Date: 07/23/2023 12:05 PM Date of : 1955 Age: 67 Procedure: Colonoscopy Indications: Screening for colorectal malignant neoplasm Providers: Armando Babin DO Referring MD: Lissette Kelly Medicines: Monitored Anesthesia Care Patient Profile: This is a 67 year old female. Refer to note in patient chart for documentation of history and physical. Last Colonoscopy: 5 years ago. Complications: No immediate complications. Procedure: Pre-Anesthesia Assessment: - Prior to the procedure, a History and Physical was performed, and patient medications and allergies were reviewed. The patient is competent. The risks and benefits of the procedure and the sedation options and risks were discussed with the patient. All questions were answered and informed consent was obtained. Patient identification and proposed procedure were verified by the physician in the pre-procedure area. Mental Status Examination: alert and oriented. Airway Examination: normal oropharyngeal airway and neck mobility. Respiratory Examination: clear to auscultation. CV Examination: normal. Prophylactic Antibiotics: The patient does not require prophylactic antibiotics. Prior Anticoagulants: The patient has taken no anticoagulant or antiplatelet agents. ASA Grade Assessment: II - A patient with mild systemic disease. After reviewing the risks and benefits, the patient was deemed in satisfactory condition to undergo the procedure. The anesthesia plan was to use monitored anesthesia care (MAC). Immediately prior to administration of medications, the patient was re-assessed for adequacy to receive sedatives. The heart rate, respiratory rate, oxygen saturations, blood pressure, adequacy of pulmonary ventilation, and response to care were monitored throughout the procedure. The physical status of the patient was re-assessed after the procedure. After I obtained informed consent, the scope was passed under direct vision. Throughout the procedure, the patient's blood pressure, pulse, and oxygen saturations were monitored continuously. The Colonoscope was introduced through the anus and advanced to the terminal ileum. The colonoscopy was performed without difficulty. The patient tolerated the procedure well. The quality of the bowel preparation was adequate. The terminal ileum, ileocecal valve, appendiceal orifice, and rectum were photographed. Scope In: 12:23:47 PM Scope Withdrawal Time 0 hours 8 minutes 18 seconds Scope Out: 12:40:44 PM Total Procedure Duration Time 0 hours 16 minutes 57 seconds Findings: The perianal and digital rectal examinations were normal. A few small-mouthed diverticula were found in the recto-sigmoid colon. A 7 mm polyp was found in the transverse colon. The polyp was sessile. The polyp was removed with a cold snare. Resection and retrieval were complete. Verification of patient identification for the specimen was done. Estimated blood loss was minimal. Non-bleeding internal hemorrhoids were found during retroflexion. The hemorrhoids were Grade III (internal hemorrhoids that prolapse but require manual reduction). Moderate rectal prolapse was present. Impression: - Diverticulosis in the recto-sigmoid colon. - One 7 mm polyp in the transverse colon, removed with a cold snare. Resected and retrieved. - Non-bleeding internal hemorrhoids. - Rectal prolapse. Recommendation: - Discharge patient to home. - Resume previous diet. - Continue present medications. - Await pathology results. - Repeat colonoscopy in 5 years for surveillance. Procedure Code(s): --- Professional --- 88581, Colonoscopy, flexible; with removal of tumor(s), polyp(s), or other lesion(s) by snare technique CPT copyright 2021 [employer]. All rights reserved. The codes documented in this report are preliminary and upon wire brush operator review may be revised to meet current compliance requirements. Armando Babin DO 07/23/2023 12:47:48 PM This report has been signed electronically. Number of Addenda: 0 Note Initiated On: 07/23/2023 12:05 PM
--- NOTE | 2023-07-23 13:01 | SUR.PHASEI ---
Patient to pacu with copious oral secretions. clear, mucous. patient able to cough up and suction yankauer used. current everyday smoker.
[2023-07-23] MEDS: Ipratropium/Albuterol Sulfate 3 ML AMPUL.NEB INHALATION (13:08)
== END 2023-07-23 14:04 | disposition home or self-care (01) ==
LOC: EN 10:48 → AC 10:49
PROVIDERS: PCP Physician Assistant; Referring Provider Physician Assistant; Visit Provider Internal Medicine Gastroenterology
PROC: 0DJD8ZZ Inspection of Lower Intestinal Tract, Via Natural or Artificial Opening Endoscopic (ICD-10-PCS; CPT 45378; principal; 2023-07-23 11:55)
DX: Z12.11 Encounter for screening for malignant neoplasm of colon (principal); K62.3 Rectal prolapse; E78.00 Pure hypercholesterolemia, unspecified; Z80.0 Family history of malignant neoplasm of digestive organs; F17.210 Nicotine dependence, cigarettes, uncomplicated; K64.2 Third degree hemorrhoids; K21.9 Gastro-esophageal reflux disease without esophagitis; I10 Essential (primary) hypertension; Z90.49 Acquired absence of other specified parts of digestive tract; E03.9 Hypothyroidism, unspecified; Z79.890 Hormone replacement therapy; K57.30 Diverticulosis of large intestine without perforation or abscess without bleeding; D12.3 Benign neoplasm of transverse colon; Z79.899 Other long term (current) drug therapy
CPT/HCPCS: 45385; 88305; 94640; J7120; J2405

== ENCOUNTER → 2024-04-10 | Outpatient (CLI) | payer MEDICARE, SELFPAY ==
--- NOTE | 2024-04-10 16:12 | RAD_ITS ---
STUDY: X-RAY - PELVIS AND RIGHT HIP REASON FOR EXAM: Female, 68 years old. RIGHT HIP PAIN TECHNIQUE: 3 views of the pelvis and hip. COMPARISON: None. FINDINGS: There is a non-specific bowel gas pattern. Normal visualized soft tissue structures. Hypertrophic facet arthropathy L5-S1 on the right. Normal bilateral iliac wings, sacroiliac joints and visualized sacrum. Normal bilateral superior and inferior pubic rami. Normal pubic symphysis. Normal bilateral ischial tuberosities. Normal visualized femoral head. Normal acetabulum. Normal hip joint. RAD/HIP, UNI W/ Pelvis 2-3 Views IMPRESSION: Hypertrophic facets L5-S1 on the right otherwise Normal x-ray examination of the pelvis and hip. Electronically Signed: Ben Cheatham MD at 19:13 EDT ,
--- NOTE | 2024-04-10 16:12 | RAD_ITS ---
STUDY: X-RAY - LUMBAR SPINE REASON FOR EXAM: Female, 68 years old. RIGHT HIP PAIN TECHNIQUE: 4 view(s) of the lumbar spine were obtained. COMPARISON: None FINDINGS: Normal lumbar lordosis. Mild dextroconvex scoliosis. Slight anterior subluxation at L4-5. No definite pars defects.. Normal vertebral bodies and endplates. Normal disc space heights. Hypertrophic well-corticated Fragmented facets noted at L4-5 bilaterally. The soft tissue structures are unremarkable. RAD/L/S Spine Min 4 Views IMPRESSION: Mild dextroconvex scoliosis. Severe Degenerative changes L4-5 on the left at L5-S1 on the right in particular. Grade 1 spondylolisthesis L4-5. Electronically Signed: Ben Cheatham MD at 19:05 EDT ,
== END | disposition home or self-care (01) ==
PROVIDERS: PCP Physician Assistant; Referring Provider Physician Assistant; Visit Provider Physician Assistant
DX: M25.551 Pain in right hip (principal)
CPT/HCPCS: 72110; 73502

== ENCOUNTER → 2024-06-24 | Outpatient (CLI) | payer MEDICARE, SELFPAY ==
--- NOTE | 2024-06-24 15:41 | CT_ITS ---
HISTORY: MICROHEMATURIA. TECHNIQUE: Helically acquired images were obtained of the abdomen and pelvis before and after the intravenous administration of 100mL Isovue-300. A radiation dose optimization technique was used for this scan. 632 images. COMPARISON: None. FINDINGS: LOWER CHEST: Lung bases clear. BOWEL: Mild hiatal hernia. Bowel nondilated. Appendix not visualized. Colonic diverticulosis without focal pericolonic inflammation. PERITONEUM: No significant ascites. LIVER: No enhancing mass. GALLBLADDER/BILIARY TREE: Gallbladder absent. SPLEEN/PANCREAS/ADRENAL GLANDS: Homogeneous and nonenlarged. KIDNEYS: No nephrolithiasis, hydronephrosis, or obstructing ureteral calculus. 9 mm right and 5.2 cm left simple cysts. VESSELS: No abdominal aortic aneurysm. Moderate atherosclerosis. PELVIC ORGANS: Punctate air in the bladder which may be secondary to recent instrumentation. No calculus in the bladder. No filling defect in the bladder on delayed images. ABDOMINAL WALL: Small subcutaneous cyst over the left rectus muscle. Bilateral fat-containing inguinal hernias. BONES: Degenerative change and mild scoliosis. CT/CT Abd/Pelvis W/WO Contrast IMPRESSION: Negative examination for renal stone. Bilateral simple renal cysts which do not require follow-up. Mild hiatal hernia. Colonic diverticulosis without acute diverticulitis. Electronically Signed: Jyoti Mcdonald MD at 15:26 EST ,
[2024-06-24 16:10] LABS: CREATININE FINGERSTICK 1.6 mg/dL (0.55-1.02)
== END | disposition home or self-care (01) ==
LOC: CT 15:39
PROVIDERS: PCP Physician Assistant; Referring Provider Urology; Visit Provider Urology
DX: R31.29 Other microscopic hematuria (principal)
CPT/HCPCS: 74178; Q9967

== ENCOUNTER → 2025-03-12 | Outpatient (CLI) | payer MEDICARE, SELFPAY ==
--- NOTE | 2025-03-12 10:08 | BI_ITS ---
EXAM: SCRN MAMM (CAD)W/LONI BILAT DATE: 03/12/2025 CLINICAL HISTORY: F, Age 69 y/o , SCREENING No family history. TECHNIQUE: Procedure Code: [id number] Modality: MG Procedure: SCRN MAMM (CAD)W/LONI BILAT COMPARISON: Prior exam(s) dated July 13, 2023.. FINDINGS: TISSUE DENSITY: There are scattered areas of fibroglandular density. Bilateral Breast Mammographic Findings: No significant masses, calcifications or other abnormalities are identified. Stable small benign-appearing bilateral axillary lymph nodes. No suspicious masses, areas of developing architectural distortion, or suspicious calcifications. There has been no significant interval change. BI/SCRN MAMM (CAD)W/LONI BILAT IMPRESSION: Stable bilateral screening mammogram. OVERALL FINAL ASSESSMENT BI-RADS 2: BENIGN RECOMMENDATION: Routine annual follow-up in 1 Year A letter with findings and recommendations will be mailed to the patient. Reading Location: [facility]
== END | disposition home or self-care (01) ==
LOC: OPBI 10:07
PROVIDERS: PCP Physician Assistant; Referring Provider Physician Assistant; Visit Provider Physician Assistant
DX: Z12.31 Encounter for screening mammogram for malignant neoplasm of breast (principal)
CPT/HCPCS: 77063; 77067

== ENCOUNTER 2025-03-26 14:30 | Outpatient (RCR) | payer MEDICARE, SELFPAY ==
--- NOTE | 2024-11-06 18:09 | HP.PTEVAL_ITS ---
Patient's Visit Information Visit Information Visit Information: AUDI SANTIZO is a 68 year old F referred to Physical Therapy by Dr. Judy Savage MD with a diagnosis of Mixed Incontinence M39.46. Date of Evaluation: 11/06/24 Physical Therapist: Supriya Matt Visit Plan Frequency: 1x/Week Duration: 2 Months Plan: Continue 1 x week. Continue pelvic floor releases (worse on left side), Continue work on right lumbar/hip/piriformis, Initiate pelvic floor strengthening when able, Has she been able to lessen Mountain Dew and increase water? Subjective Subjective: She is coming in for mixed incontinence for about 5-10 years. She used to use just a light liner but in the last year she is using 2-3 pads a day. If she is sleeping and she wakes up, she is leaking before she gets to the bathroom. She gets up 1-2 x night to urinate. She can have 4 episodes of leaking a day. She has gained about 8lbs and she wonders if that contributes to increased incontinence. She isn't exercising as much recently. She can leak with a cough or sneeze, laughing. If she has been out of the house, and she unlocks the door she notices immediate urgency. Sometimes she doesn't make it to the bathroom in time. She can loose complete control of her bladder . She can be urinating as she is pulling her pants down. She has 2 herniated discs (she isn't sure what levels are involved) and severe arthritis. She notices if she is trying to walk a 1/2 mile she would have pain in the right hip. Pain can radiate into the groin area at times. 4/10. She feels pain with extensive sitting more than an hour. She drinks Mountain Dew 1-2 cans a day. 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 She did a bladder cystoscopy and that was good. She is also emptying bladder well. Bowel obstruction in hospital for 15 days in 2004. She states her bowel movements have been loose. Gallbladder removed in 2019. 2 children. One C section and one vaginal delivery. She likes to garden. Pain Low back: Pain Intensity (Out of 10): 0 Pain Intensity Range: 4 Objective Objective: POPDI-6 0, CRAD-8 3, JONI-6 9 LAYCOCK 3-///2 Mild, moderate pelvic floor tightness bilaterally (worse on left side) Cystocele 1 LEFT UPSLIP Right rotation L3-L5 Moderate right lumbar tightness and piriformis tightness Goals Goal 1:: Audi will be able to delay urination by 5 minutes when urgency comes on to avoid any incontinence episodes. Goal Time Frame: 8-12 Weeks Goal 2:: Audi will be able to cough or sneeze without leaking. Goal Time Frame: 6-8 Weeks Goal 3:: Audi will be able to perform light housework with bending without low back pain during or after. Rehabilitation Potential Physical Therapy Diagnosis: Low back pain , unspecified Rehabilitation Potential: Good Anticipated Interventions Patient/Client Instruction: Educate patient on: Condition and Plan of Care For the Purpose of:: To improve muscle performance and motor function, To improve health and function, To improve self management and To improve tolerance to ADL's Therapeutic Exercise to Include: Strength training, Neuromotor development, Relaxation training, Dynamic Lumbar Stabilization and Aristides Exercises For the Purpose of:: To decrease pain, To improve muscle performance and motor function, To improve health and function, To improve self management and To improve tolerance to ADL's Manual Therapy Techniques to Include: Trigger point massage, Massage, Mobilization and Soft tissue mobilization For the Purpose of:: To decrease pain, To improve muscle performance and motor function, To improve health and function and To improve self management Ultrasound (thermal/non thermal): Yes For the Purpose of:: To decrease pain, To improve health and function and To improve self management Text: Thank you for the opportunity to evaluate your patient. For Medicare and Medicare HMO plans, please review the plan of care and approve it. It will need to be FAXED BACK to us at [phone] for Medicare purposes. For Medicare only, by signing this I certify the plan of care. Please let me know if there are questions or concerns regarding this plan of care. Physician Signature: Date:
--- NOTE | 2025-03-26 16:52 | HP.PTDCSUM_ITS ---
Discharge Summary D/C summary: It has been my pleasure to treat IVETT SANTIZO referred by Dr. Judy Savage MD, with the diagnosis of Mixed Incontinence M39.46 for a total of 7 visit(s). Discharge Date: 03/26/25 Please see the following information for a summary of their discharge status. Subjective Subjective: She reports minimal progress in PT. She reports 5-10% improvement overall in her incontinence but she admits she has been so busy in life lately that she hasn't been able to be very compliant with the exercises for home (Her mother 3 weeks ago). No complaints of back pain today but she still has occasional low back pain. Pain Low back: Pain Intensity (Out of 10): 0 Objective Objective/Function: Ivett's progress in PT has unfortunately been minimal. She continues to struggle with daily leakage but admits she really hasn't been compliant with the exercises due to a busy schedule and a lot going on in her life recently. I recommended she follow up with Dr. Savage if her leaking persists despite trying to increase her strengthening compliance to determine next steps. She did have some improvement in her pelvic floor strength since the initial evaluation. Goals Goal 1:: Ivett will be able to delay urination by 5 minutes when urgency comes on to avoid any incontinence episodes. 03/26/25 10% improvement Goal Progress: Progressing Goal 2:: Ivett will be able to cough or sneeze without leaking. 03/26/25 20% improvement Goal Progress: Progressing Goal 3:: Ivett will be able to perform light housework with bending without low back pain during or after. 03/26/25 10% improvement Goal Progress: Progressing Plan Plan: D/C from PT . She plans to continue the strengthening and try to improve h er compliance for a few months to see if her incontinence improves? If not, recommending she follow up with Dr. Savage. D/C Information Discharge Comments: She will try to improve her compliance with her home exercise program but if no improvements, she will follow up with Dr. Savage. d/c sentence: If there are questions or concerns regarding this patient's physical therapy, please feel free to call me at [phone]. Thank you for the referral of this patient. Sincerely, Supriya Matt
== END 2025-03-26 19:00 | disposition home or self-care (01) ==
LOC: PT 14:30
PROVIDERS: PCP Physician Assistant; Referring Provider Urology; Visit Provider Urology
DX: N39.46 Mixed incontinence (principal)
CPT/HCPCS: 97110; 97112; 97140; 97162; 97530